=== PATIENT | female | born 1945 | race African-American/Black ===

== ENCOUNTER 2017-05-08 13:58 | Emergency (ER) | payer MEDICARE, MEDICAID ==
[~2017-05-08] VITALS: Ht 165.1 cm; Wt 109.0 kg
[~2017-05-08 13:58] MED LIST: ASPI-1158 PO; CELE100C PO; CLON0.2T PO; COMBIV IH; CYAN500T18 PO; DULO60CA44 PO; FURO-151 PO; HYDR-1717 PO; HYDR-4134 PO; LEVPEN SQ; LIRA0.6P SQ; LISI40TA4 PO; LOSA50TA3 PO; METH500T PO; NYST15PO TP; OMEP20CA10 PO; PIOG15TA6 PO; SIMV40TA5 PO; TIMO15DR12 OP; [UNRECOGNIZED DRUG - OTHER]
[2017-05-08 15:43] LABS: BASOPHILS % 1.4 % (0.0-2.0); EOSINOPHILS % 1.9 % (0.0-5.0); HEMATOCRIT. 34.2 % (36.0-48.0); HEMOGLOBIN. 11.6 g/dL (12.0-16.0); LYMPHOCYTES % 22.5 % (20.0-50.0); MEAN CORPUSCULAR HEMOGLOBIN 31.1 pg (28.0-32.0); MEAN CORPUSCULAR VOLUME 91.3 fL (81.0-99.0); MONOCYTES % 4.6 % (2.0-8.0); NEUTROPHILS % 69.6 % (40.0-76.0); PLATELET 202 x1000/uL (130-400); RED BLOOD CELL COUNT 3.75 mill/uL (4.2-5.4)
[2017-05-08 15:53] LABS: CARBON DIOXIDE 27 mEq/L (21-32); CHLORIDE 106 mEq/L (98-107)
[2017-05-08] MEDS ORDERED: SULFAMETHOXAZOLE/TRIMETHOPRIM 800/160MG TABLET PO ONE (18:30)
[2017-05-08] MEDS ORDERED: CEPHALEXIN 500MG CAPSULE PO ONE (18:30)
[2017-05-08 18:51] VITALS: BP 188/98
== END 2017-05-08 18:54 | disposition home or self-care (01) ==
LOC: ER 17:02
DX: L03.115 Cellulitis of right lower limb (principal); Z88.0 Allergy status to penicillin; Z88.5 Allergy status to narcotic agent; Z79.82 Long term (current) use of aspirin
CPT/HCPCS: 36415; 80053; 85025; 99284

== ENCOUNTER 2019-03-28 15:02 | Inpatient (IN) | payer MEDICARE, MEDICAID ==
[~2019-03-28] VITALS: Ht 162.6 cm; Wt 113.9 kg
[~2019-03-28 15:02] MED LIST changes: +ATOR40TA70 PO; -OMEP20CA10 PO; +OMEP20CA5 PO; -SIMV40TA5 PO; +VIT D; -[UNRECOGNIZED DRUG - OTHER]
[2019-03-28] MEDS ORDERED: NITROGLYCERIN OINT 1GM/INCH UDPKT TD ONE (16:00)
[2019-03-28] MEDS ORDERED: FUROSEMIDE 40MG/4ML VIAL IV ONE (16:00)
[2019-03-28] MEDS ORDERED: CLONIDINE 0.2MG TABLET PO ONE (16:00)
[2019-03-28 16:19] LABS: BASOPHILS % 0.8 % (0.0-2.0); EOSINOPHILS % 1.7 % (0.0-5.0); HEMATOCRIT. 30.6 % (36.0-48.0); HEMOGLOBIN. 10.3 g/dL (12.0-16.0); LYMPHOCYTES % 17.3 % (20.0-50.0); MEAN CORPUSCULAR HEMOGLOBIN 31.5 pg (28.0-32.0); MEAN CORPUSCULAR VOLUME 93.2 fL (81.0-99.0); MEAN PLATELET VOLUME 9.7 fl (7.4-10.4); MONOCYTES % 3.7 % (2.0-8.0); NEUTROPHILS % 76.5 % (40.0-76.0); PLATELET 130 x1000/uL (130-400); RED BLOOD CELL COUNT 3.28 mill/uL (4.2-5.4); RED CELL DISTRIBUTION WIDTH 14.2 % (11.6-14.6)
[2019-03-28 16:21] LABS: CHLORIDE 109 mEq/L (98-107)
[2019-03-28 16:24] LABS: PARTIAL THROMBOPLASTIN TIME 25.2 sec (23.4-31.0)
[2019-03-28] MEDS ORDERED: INSULIN REGULAR (HUMULIN R) UD 100 UNITS/ML SYR SUBCUT ONE (17:00)
[2019-03-28] MEDS ORDERED: INSULIN REGULAR (HUMULIN R) 300UNITS/3ML SUBCUT NR (17:31)
[2019-03-28] MEDS ORDERED: ASPIRIN 325MG EC TABLET PO ONE (18:00)
[2019-03-28] MEDS ORDERED: HYDRALAZINE 20MG/ML VIAL IV ONE (18:00)
[2019-03-28] MEDS ORDERED: ACETAMINOPHEN 325MG TABLET PO PRN (18:15)
[2019-03-28] MEDS ORDERED: DOCUSATE SODIUM 100MG CAPSULE PO PRN (18:15)
[2019-03-28] MEDS ORDERED: CLONIDINE 0.1MG TABLET PO PRN (18:15)
[2019-03-28] MEDS ORDERED: METHOCARBAMOL 500MG TABLET PO PRN (18:15)
[2019-03-28] MEDS ORDERED: ONDANSETRON HCL 4MG/2ML INJ IV PRN (18:15)
[2019-03-28 18:38] LABS: CLARITY URINE CLEAR (CLEAR); COLOR URINE YELLOW (YELLOW); KETONES URINE NEGATIVE (NEGATIVE); LEUKOCYTE ESTERASE URINE NEGATIVE (NEGATIVE); NITRITE URINE NEGATIVE (NEGATIVE); OCCULT BLOOD URINE 1+ (NEGATIVE); PROTEIN URINE 2+ (NEGATIVE); SPECIFIC GRAVITY URINE 1.013 (1.005-1.030)
[2019-03-28] MEDS ORDERED: ACETAMINOPHEN 325MG TABLET PO ONE (18:45)
[2019-03-28] MEDS ORDERED: LEVOFLOXACIN 500MG PREMIX 100 ML IV SCH (19:00)
[2019-03-28 19:30] LABS: *AMPHETAMINES SCREEN URINE NEGATIVE (NEGATIVE)
[2019-03-28 19:31] LABS: *BARBITURATES SCREEN URINE NEGATIVE (NEGATIVE); *BENZODIAZEPINES SCREEN URINE NEGATIVE (NEGATIVE); *COCAINE SCREEN URINE NEGATIVE (NEGATIVE)
[2019-03-28 19:32] LABS: CANNABINOID URINE SCREEN NEGATIVE (NEGATIVE); METHADONE URINE SCREEN NEGATIVE (NEGATIVE); OPIATES URINE SCREEN NEGATIVE (NEGATIVE); PHENCYCLIDINE URINE SCREEN NEGATIVE (NEGATIVE)
[2019-03-28] MEDS ORDERED: DEXTROSE 50% WATER 50ML SYRINGE IV PRN (21:00)
[2019-03-28] MEDS ORDERED: INSULIN GLARGINE UD 100 UNITS/ML SYR SUBCUT SCH (22:00)
[2019-03-28 22:30] VITALS: BP 170/95
[2019-03-28] MEDS: BLOOD SUGAR DIAGNOSTIC STRIP TEST SCH (23:00)
[2019-03-29] VITALS (7 sets, daily range): BP systolic 118–187; BP diastolic 61–95
[2019-03-29] MEDS ORDERED: INSULIN GLARGINE UD 100 UNITS/ML SYR SUBCUT SCH
[2019-03-29] MEDS: ATORVASTATIN CALCIUM 20MG TABLET PO SCH ×2 (00:01→22:00)
[2019-03-29] MEDS: PANTOPRAZOLE 40MG DR TABLET PO SCH ×3 (00:02→22:03)
[2019-03-29] MEDS: GABAPENTIN 100MG CAPSULE PO SCH ×4 (00:03→22:00)
[2019-03-29] MEDS: TRAMADOL 50MG TABLET PO PRN ×3 (00:04→23:31)
[2019-03-29] MEDS: HYDRALAZINE HCL 25MG TABLET PO SCH ×4 (00:04→22:01)
[2019-03-29] MEDS: CLONIDINE 0.2MG TABLET PO SCH ×4 (00:05→22:01)
[2019-03-29] MEDS: INSULIN LISPRO 100 UNITS/ML SUBCUT SCH ×4 (00:08→17:56)
[2019-03-29] MEDS: LOSARTAN POTASSIUM 50 MG TABLET PO SCH ×2 (00:11→09:15)
[2019-03-29] MEDS ORDERED: NEOM28.3 TP (04:22)
[2019-03-29] MEDS ORDERED: KETO5DRO80 EACHEYE (04:22)
[2019-03-29] MEDS ORDERED: KETO5DRO37 OP (04:22)
[2019-03-29] MEDS ORDERED: BRIN8DRO EACHEYE (04:22)
[2019-03-29] MEDS ORDERED: PRED12O BOTHEYE (04:22)
[2019-03-29] MEDS ORDERED: PRED12O EACHEYE (04:22)
[2019-03-29 05:56] LABS: BASOPHILS % 0.4 % (0.0-2.0); HEMOGLOBIN. 10.2 g/dL (12.0-16.0); LYMPHOCYTES % 23.4 % (20.0-50.0); MEAN CORPUSCULAR HEMOGLOBIN 31.4 pg (28.0-32.0); MEAN CORPUSCULAR VOLUME 92.3 fL (81.0-99.0); MEAN PLATELET VOLUME 10.8 fl (7.4-10.4); MONOCYTES % 5.6 % (2.0-8.0); NEUTROPHILS % 68.6 % (40.0-76.0); PLATELET 129 x1000/uL (130-400); RED BLOOD CELL COUNT 3.25 mill/uL (4.2-5.4); RED CELL DISTRIBUTION WIDTH 13.9 % (11.6-14.6)
[2019-03-29 05:58] LABS: CHLORIDE 109 mEq/L (98-107)
[2019-03-29 06:07] LABS: LDL CHOLESTEROL 84 mg/dL (5-100)
[2019-03-29 06:08] LABS: HDL CHOLESTEROL 66 mg/dL (40-59)
[2019-03-29] MEDS: BLOOD SUGAR DIAGNOSTIC STRIP TEST SCH ×4 (07:11→21:00)
[2019-03-29] MEDS ORDERED: PIOGLITAZONE 15MG TABLET PO SCH (09:00)
[2019-03-29] MEDS: FUROSEMIDE 40MG/4ML VIAL IVP SCH (09:15)
[2019-03-29] MEDS: DULOXETINE HCL 60MG DR CAPSULE PO SCH (09:16)
[2019-03-29] MEDS: IPRATROPIUM/ALBUTEROL 0.5-3(2.5)MG/3ML NEB INH SCH ×3 (09:19→21:16)
[2019-03-29] MEDS ORDERED: INSULIN LISPRO 100 UNITS/ML SUBCUT SCH (17:20)
[2019-03-29] MEDS: LINAGLIPTIN 5MG TABLET PO SCH (17:53)
[2019-03-29] MEDS: INSULIN LISPRO (LOW DOSE) 100 UNITS/ML SUBCUT SCH (17:57)
[2019-03-29] MEDS ORDERED: PNEUMOCOCCAL 23-VAL P-SAC VAC 0.5 ML IM ONE (19:45)
[2019-03-29] MEDS ORDERED: LEVOFLOXACIN 500MG PREMIX 100 ML IV SCH (20:00)
[2019-03-29] MEDS: INSULIN GLARGINE UD 100 UNITS/ML SYR SUBCUT SCH (21:54)
[2019-03-29] MEDS: ENOXAPARIN 30MG/0.3ML SYR SUBCUT SCH (22:08)
[2019-03-29] MEDS: LEVOFLOXACIN 250MG PREMIX 50 ML IV SCH (23:30)
[2019-03-30] VITALS: BP 144/71
[2019-03-30] MEDS: IPRATROPIUM/ALBUTEROL 0.5-3(2.5)MG/3ML NEB INH SCH ×4 (01:57→21:40)
[2019-03-30 04:00] VITALS: BP 102/66
[2019-03-30] MEDS: GABAPENTIN 100MG CAPSULE PO SCH (05:48)
[2019-03-30] MEDS: HYDRALAZINE HCL 25MG TABLET PO SCH ×3 (05:50→21:18)
[2019-03-30] MEDS: CLONIDINE 0.2MG TABLET PO SCH ×3 (05:51→21:18)
[2019-03-30] MEDS: PANTOPRAZOLE 40MG DR TABLET PO SCH ×2 (06:32→21:18)
[2019-03-30] MEDS: TRAMADOL 50MG TABLET PO PRN ×2 (06:51→23:07)
[2019-03-30 06:52] LABS: BASOPHILS % 0.6 % (0.0-2.0); EOSINOPHILS % 1.2 % (0.0-5.0); HEMATOCRIT. 28.3 % (36.0-48.0); HEMOGLOBIN. 9.6 g/dL (12.0-16.0); LYMPHOCYTES % 21.2 % (20.0-50.0); MEAN CORPUSCULAR HEMOGLOBIN 31.3 pg (28.0-32.0); MEAN CORPUSCULAR VOLUME 92.6 fL (81.0-99.0); MEAN PLATELET VOLUME 9.8 fl (7.4-10.4); MONOCYTES % 4.8 % (2.0-8.0); NEUTROPHILS % 72.2 % (40.0-76.0); PLATELET 120 x1000/uL (130-400); RED BLOOD CELL COUNT 3.06 mill/uL (4.2-5.4); RED CELL DISTRIBUTION WIDTH 14.3 % (11.6-14.6)
[2019-03-30 06:59] LABS: CHLORIDE 105 mEq/L (98-107)
[2019-03-30 07:11] LABS: T4 FREE 0.98 ng/dL (0.76-1.46)
[2019-03-30] MEDS: BLOOD SUGAR DIAGNOSTIC STRIP TEST SCH ×4 (07:46→21:23)
[2019-03-30] MEDS: FUROSEMIDE 40MG/4ML VIAL IVP SCH (08:26)
[2019-03-30] MEDS: DULOXETINE HCL 60MG DR CAPSULE PO SCH (08:26)
[2019-03-30] MEDS: LINAGLIPTIN 5MG TABLET PO SCH (08:26)
[2019-03-30] MEDS: LOSARTAN POTASSIUM 50 MG TABLET PO SCH (08:27)
[2019-03-30] MEDS: ENOXAPARIN 30MG/0.3ML SYR SUBCUT SCH ×2 (08:27→21:22)
[2019-03-30] MEDS: ASPIRIN 81MG TABLET PO SCH (08:27)
[2019-03-30] MEDS: INSULIN LISPRO 100 UNITS/ML SUBCUT SCH ×3 (08:30→18:09)
[2019-03-30] MEDS: INSULIN LISPRO (LOW DOSE) 100 UNITS/ML SUBCUT SCH ×3 (08:31→17:50)
[2019-03-30] MEDS: INSULIN GLARGINE UD 100 UNITS/ML SYR SUBCUT SCH (10:40)
[2019-03-30 12:29] VITALS: BP 150/73
[2019-03-30 15:50] VITALS: BP 162/81
[2019-03-30 20:00] VITALS: BP 150/81
[2019-03-30] MEDS: ATORVASTATIN CALCIUM 20MG TABLET PO SCH (21:18)
[2019-03-30] MEDS: LEVOFLOXACIN 250MG PREMIX 50 ML IV SCH (21:30)
[2019-03-31] VITALS: BP 135/70
[2019-03-31] MEDS: IPRATROPIUM/ALBUTEROL 0.5-3(2.5)MG/3ML NEB INH SCH ×3 (01:34→21:26)
[2019-03-31 04:00] VITALS: BP 132/68
[2019-03-31] MEDS: HYDRALAZINE HCL 25MG TABLET PO SCH ×3 (06:45→22:28)
[2019-03-31] MEDS: CLONIDINE 0.2MG TABLET PO SCH ×3 (06:45→22:29)
[2019-03-31] MEDS: BLOOD SUGAR DIAGNOSTIC STRIP TEST SCH ×4 (07:04→21:00)
[2019-03-31] MEDS: INSULIN LISPRO 100 UNITS/ML SUBCUT SCH ×6 (07:04→18:28)
[2019-03-31 07:37] LABS: BASOPHILS % 0.6 % (0.0-2.0); EOSINOPHILS % 2.5 % (0.0-5.0); HEMOGLOBIN. 10.5 g/dL (12.0-16.0); LYMPHOCYTES % 34.2 % (20.0-50.0); MEAN CORPUSCULAR HEMOGLOBIN 31.3 pg (28.0-32.0); MEAN CORPUSCULAR VOLUME 92.1 fL (81.0-99.0); MEAN PLATELET VOLUME 10.5 fl (7.4-10.4); NEUTROPHILS % 57.7 % (40.0-76.0); PLATELET 131 x1000/uL (130-400); RED BLOOD CELL COUNT 3.37 mill/uL (4.2-5.4); RED CELL DISTRIBUTION WIDTH 14.4 % (11.6-14.6)
[2019-03-31 07:55] LABS: CHLORIDE 104 mEq/L (98-107)
[2019-03-31] MEDS: PANTOPRAZOLE 40MG DR TABLET PO SCH ×2 (08:05→22:29)
[2019-03-31] MEDS: LINAGLIPTIN 5MG TABLET PO SCH (09:46)
[2019-03-31] MEDS: LOSARTAN POTASSIUM 50 MG TABLET PO SCH (09:46)
[2019-03-31] MEDS: PRIMIDONE 50MG TABLET PO SCH ×2 (09:46→22:28)
[2019-03-31] MEDS: ASPIRIN 81MG TABLET PO SCH (09:46)
[2019-03-31] MEDS: ENOXAPARIN 30MG/0.3ML SYR SUBCUT SCH ×2 (09:48→22:29)
[2019-03-31] MEDS: INSULIN GLARGINE UD 100 UNITS/ML SYR SUBCUT SCH ×2 (10:00→22:31)
[2019-03-31] MEDS ORDERED: LEVOFLOXACIN 250MG TABLET PO SCH (11:00)
[2019-03-31 12:00] VITALS: BP 168/86
[2019-03-31] MEDS: GABAPENTIN 100MG CAPSULE PO SCH ×2 (13:19→22:28)
[2019-03-31] MEDS ORDERED: CLON0.3T PO (13:53)
[2019-03-31 15:38] VITALS: BP 155/76
[2019-03-31] MEDS: TRAMADOL 50MG TABLET PO PRN ×2 (15:56→22:42)
[2019-03-31 16:35] VITALS: BP 168/99
[2019-03-31 20:00] VITALS: BP 144/66
[2019-03-31 20:36] LABS: T4 FREE 0.95 ng/dL (0.76-1.46)
[2019-03-31] MEDS: ATORVASTATIN CALCIUM 20MG TABLET PO SCH (22:28)
[2019-04-01] VITALS: BP 174/81
[2019-04-01] MEDS: IPRATROPIUM/ALBUTEROL 0.5-3(2.5)MG/3ML NEB INH SCH (02:26)
[2019-04-05 08:07] LABS: DOPAMINE PLASMA <30 pg/mL (0-48); EPINEPHRINE PLASMA <15 pg/mL (0-62); NOREPINEPHRINE PLASMA 326 pg/mL (0-874)
== END 2019-04-01 03:50 | disposition home or self-care (01) | DRG 291 ==
LOC: ER 15:02 → 6WST 18:03 → ENRESERV 20:04 → 6WST 03-29 23:00
PROVIDERS: ADMIT Internal Medicine Nephrology; ATTEND Internal Medicine Nephrology
DX: I13.0 Hypertensive heart and chronic kidney disease with heart failure and stage 1 through stage 4 chronic kidney disease, or unspecified chronic kidney disease (principal); I50.23 Acute on chronic systolic (congestive) heart failure; N39.0 Urinary tract infection, site not specified; Z68.41 Body mass index [BMI] 40.0-44.9, adult; N17.9 Acute kidney failure, unspecified; D64.9 Anemia, unspecified; D69.6 Thrombocytopenia, unspecified; E11.65 Type 2 diabetes mellitus with hyperglycemia; E66.01 Morbid (severe) obesity due to excess calories; E78.5 Hyperlipidemia, unspecified; I87.2 Venous insufficiency (chronic) (peripheral); J44.9 Chronic obstructive pulmonary disease, unspecified; I89.0 Lymphedema, not elsewhere classified; M06.9 Rheumatoid arthritis, unspecified; M48.061 Spinal stenosis, lumbar region without neurogenic claudication; N18.2 Chronic kidney disease, stage 2 (mild); K44.9 Diaphragmatic hernia without obstruction or gangrene; R26.9 Unspecified abnormalities of gait and mobility; E11.22 Type 2 diabetes mellitus with diabetic chronic kidney disease; E11.42 Type 2 diabetes mellitus with diabetic polyneuropathy; E11.649 Type 2 diabetes mellitus with hypoglycemia without coma; Z79.4 Long term (current) use of insulin; Z79.82 Long term (current) use of aspirin; Z79.899 Other long term (current) drug therapy; Z83.3 Family history of diabetes mellitus; Z86.73 Personal history of transient ischemic attack (TIA), and cerebral infarction without residual deficits; Z98.42 Cataract extraction status, left eye; Z88.0 Allergy status to penicillin; Z88.5 Allergy status to narcotic agent; Z79.1 Long term (current) use of non-steroidal anti-inflammatories (NSAID)
CPT/HCPCS: 36415; 71045; 78582; 80048; 80061; 80305; 81003; 82306; 82310; 82390; 82533; 82962; 83036; 83735; 83835; 83880; 84439; 84443; 84481; 84484; 85379; 90732; 93005; 93306; 93970; 94640; 97162; 97166; 97530; 97535; 99285; A9558; J0360; J1650; J1815; J1940; J1956; J7620

== ENCOUNTER 2019-05-05 15:21 | Inpatient (IN) | payer MEDICARE, MEDICAID ==
[~2019-05-05] VITALS: Ht 167.6 cm; Wt 118.4 kg
[~2019-05-05 15:21] MED LIST changes: +BRIN8DRO EACHEYE; -CLON0.2T PO; +CLON0.3T PO; -CYAN500T18 PO; -HYDR-1717 PO; -HYDR-4134 PO; +KETO5DRO37 OP; -LOSA50TA3 PO; -METH500T PO; +NEOM28.3 TP; -NYST15PO TP; -PIOG15TA6 PO; +PRED12O BOTHEYE; -TIMO15DR12 OP; -VIT D
[2019-05-05 18:09] LABS: BASOPHILS % 0.9 % (0.0-2.0); EOSINOPHILS % 1.1 % (0.0-5.0); HEMATOCRIT. 31.3 % (36.0-48.0); HEMOGLOBIN. 10.3 g/dL (12.0-16.0); LYMPHOCYTES % 19.7 % (20.0-50.0); MEAN CORPUSCULAR HEMOGLOBIN 31.1 pg (28.0-32.0); MEAN CORPUSCULAR VOLUME 94.3 fL (81.0-99.0); MEAN PLATELET VOLUME 10.6 fl (7.4-10.4); MONOCYTES % 4.2 % (2.0-8.0); NEUTROPHILS % 74.1 % (40.0-76.0); PLATELET 181 x1000/uL (130-400); RED BLOOD CELL COUNT 3.32 mill/uL (4.2-5.4); RED CELL DISTRIBUTION WIDTH 14.5 % (11.6-14.6)
[2019-05-05 18:13] LABS: CHLORIDE 111 mEq/L (98-107)
[2019-05-05 21:00] VITALS: BP 183/97
[2019-05-05] MEDS ORDERED: ONDANSETRON HCL 4MG/2ML INJ IV PRN (21:30)
[2019-05-05] MEDS: CLONIDINE 0.1MG TABLET PO PRN (22:43)
[2019-05-05] MEDS ORDERED: KETOROLAC 15MG/ML VIAL IV PRN (22:45)
[2019-05-05] MEDS: CLONIDINE 0.3MG TABLET PO SCH (23:48)
[2019-05-06] VITALS: BP 171/94
[2019-05-06 04:00] VITALS: BP 148/84
[2019-05-06] MEDS: DULOXETINE HCL 60MG DR CAPSULE PO SCH ×2 (05:17→21:01)
[2019-05-06] MEDS: FUROSEMIDE 40MG TABLET PO SCH ×3 (05:17→18:24)
[2019-05-06] MEDS: CLONIDINE 0.3MG TABLET PO SCH ×3 (05:22→20:58)
[2019-05-06] MEDS: KETOROLAC 15MG/ML VIAL IV PRN ×2 (06:59→12:35)
[2019-05-06 07:37] LABS: BASOPHILS % 0.9 % (0.0-2.0); EOSINOPHILS % 2.3 % (0.0-5.0); HEMATOCRIT. 26.3 % (36.0-48.0); HEMOGLOBIN. 8.9 g/dL (12.0-16.0); LYMPHOCYTES % 30.9 % (20.0-50.0); MEAN CORPUSCULAR HEMOGLOBIN 31.9 pg (28.0-32.0); MEAN CORPUSCULAR VOLUME 94.1 fL (81.0-99.0); MEAN PLATELET VOLUME 10.5 fl (7.4-10.4); NEUTROPHILS % 59.9 % (40.0-76.0); PLATELET 143 x1000/uL (130-400); RED BLOOD CELL COUNT 2.79 mill/uL (4.2-5.4); RED CELL DISTRIBUTION WIDTH 13.8 % (11.6-14.6)
[2019-05-06] MEDS ORDERED: DEXTROSE 50% WATER 50ML SYRINGE IV PRN (07:45)
[2019-05-06 08:00] VITALS: BP 143/90
[2019-05-06] MEDS: INSULIN LISPRO 100 UNITS/ML SUBCUT SCH ×3 (09:10→18:28)
[2019-05-06] MEDS: DOCUSATE SODIUM 100MG CAPSULE PO PRN (09:13)
[2019-05-06] MEDS: CELECOXIB 100MG CAPSULE PO SCH (09:13)
[2019-05-06] MEDS: ASPIRIN 81MG EC TABLET PO SCH (09:13)
[2019-05-06] MEDS: ENOXAPARIN 40MG/0.4ML SYR SUBCUT SCH (09:13)
[2019-05-06] MEDS: KETOROLAC TROMETHAMINE 0.5% OPHTH 3ML BOTHEYE SCH ×2 (09:23→18:24)
[2019-05-06] MEDS: SODIUM CHLORIDE 0.45% 1,000 ML IV SCH (09:24)
[2019-05-06] MEDS: TRAMADOL 50MG TABLET PO PRN (09:28)
[2019-05-06 12:00] VITALS: BP 166/76
[2019-05-06] MEDS: BLOOD SUGAR DIAGNOSTIC STRIP TEST SCH ×2 (12:36→17:20)
[2019-05-06 14:37] LABS: FOLIC ACID (FOLATE) SERUM 3.6 ng/mL (>5.38)
[2019-05-06 16:21] LABS: PROTHROMBIN TIME 10.2 sec (9.6-11.0); TOTAL IRON BINDING CAPACITY 193 ug/dL (250-450)
[2019-05-06 16:22] LABS: T4 FREE 0.82 ng/dL (0.76-1.46)
[2019-05-06 20:13] VITALS: BP 134/76
[2019-05-06] MEDS: ATORVASTATIN CALCIUM 40MG TABLET PO SCH (20:55)
[2019-05-07] VITALS (8 sets, daily range): BP systolic 137–203; BP diastolic 69–108
[2019-05-07] MEDS: CLONIDINE 0.1MG TABLET PO PRN ×4 (03:50→21:13)
[2019-05-07] MEDS: CLONIDINE 0.3MG TABLET PO SCH ×3 (06:12→21:28)
[2019-05-07] MEDS: SODIUM CHLORIDE 0.45% 1,000 ML IV SCH (06:12)
[2019-05-07] MEDS: KETOROLAC 15MG/ML VIAL IV PRN ×2 (06:24→18:04)
[2019-05-07 07:11] LABS: BASOPHILS % 0.8 % (0.0-2.0); EOSINOPHILS % 2.5 % (0.0-5.0); HEMATOCRIT. 28.1 % (36.0-48.0); HEMOGLOBIN. 9.5 g/dL (12.0-16.0); LYMPHOCYTES % 31.4 % (20.0-50.0); MEAN CORPUSCULAR HEMOGLOBIN 31.6 pg (28.0-32.0); MEAN CORPUSCULAR VOLUME 93.8 fL (81.0-99.0); MEAN PLATELET VOLUME 10.7 fl (7.4-10.4); MONOCYTES % 5.6 % (2.0-8.0); NEUTROPHILS % 59.7 % (40.0-76.0); PLATELET 151 x1000/uL (130-400); RED BLOOD CELL COUNT 2.99 mill/uL (4.2-5.4); RED CELL DISTRIBUTION WIDTH 14.1 % (11.6-14.6)
[2019-05-07] MEDS: ASPIRIN 81MG EC TABLET PO SCH (08:33)
[2019-05-07] MEDS: ENOXAPARIN 40MG/0.4ML SYR SUBCUT SCH (08:33)
[2019-05-07] MEDS: KETOROLAC TROMETHAMINE 0.5% OPHTH 3ML BOTHEYE SCH ×2 (08:33→18:36)
[2019-05-07] MEDS: FUROSEMIDE 40MG TABLET PO SCH ×2 (08:33→18:06)
[2019-05-07] MEDS: INSULIN LISPRO 100 UNITS/ML SUBCUT SCH ×4 (08:39→21:30)
[2019-05-07] MEDS ORDERED: AMLODIPINE 5MG TABLET PO SCH (11:15)
[2019-05-07] MEDS: BLOOD SUGAR DIAGNOSTIC STRIP TEST SCH ×4 (12:31→21:20)
[2019-05-07] MEDS: TRAMADOL 50MG TABLET PO PRN (19:02)
[2019-05-07] MEDS: AMLODIPINE 5MG TABLET PO SCH (21:13)
[2019-05-07] MEDS: DULOXETINE HCL 60MG DR CAPSULE PO SCH (21:28)
[2019-05-07] MEDS: ATORVASTATIN CALCIUM 40MG TABLET PO SCH (21:31)
[2019-05-07] MEDS: INSULIN GLARGINE UD 100 UNITS/ML SYR SUBCUT SCH (21:36)
[2019-05-08] VITALS (7 sets, daily range): BP systolic 153–191; BP diastolic 80–101
[2019-05-08] MEDS: SODIUM CHLORIDE 0.45% 1,000 ML IV SCH (01:45)
[2019-05-08] MEDS: TRAMADOL 50MG TABLET PO PRN ×3 (01:53→18:33)
[2019-05-08] MEDS: CLONIDINE 0.3MG TABLET PO SCH ×3 (06:08→21:09)
[2019-05-08 06:54] LABS: BASOPHILS % 0.7 % (0.0-2.0); EOSINOPHILS % 2.4 % (0.0-5.0); HEMOGLOBIN. 10.1 g/dL (12.0-16.0); LYMPHOCYTES % 26.2 % (20.0-50.0); MEAN CORPUSCULAR HEMOGLOBIN 31.4 pg (28.0-32.0); MEAN CORPUSCULAR VOLUME 93.2 fL (81.0-99.0); MONOCYTES % 4.2 % (2.0-8.0); NEUTROPHILS % 66.5 % (40.0-76.0); PLATELET 162 x1000/uL (130-400); RED BLOOD CELL COUNT 3.22 mill/uL (4.2-5.4); RED CELL DISTRIBUTION WIDTH 13.9 % (11.6-14.6)
[2019-05-08] MEDS: BLOOD SUGAR DIAGNOSTIC STRIP TEST SCH ×4 (07:35→21:00)
[2019-05-08] MEDS: INSULIN LISPRO 100 UNITS/ML SUBCUT SCH ×4 (08:10→21:11)
[2019-05-08] MEDS: AMLODIPINE 5MG TABLET PO SCH ×2 (08:54→21:09)
[2019-05-08] MEDS: FUROSEMIDE 40MG TABLET PO SCH (08:54)
[2019-05-08] MEDS: ENOXAPARIN 40MG/0.4ML SYR SUBCUT SCH (08:54)
[2019-05-08] MEDS: KETOROLAC TROMETHAMINE 0.5% OPHTH 3ML BOTHEYE SCH ×2 (08:55→18:33)
[2019-05-08] MEDS: HYDRALAZINE HCL 50MG TABLET PO SCH ×3 (13:06→21:09)
[2019-05-08] MEDS: CELECOXIB 100MG CAPSULE PO SCH (13:06)
[2019-05-08] MEDS: DOCUSATE SODIUM 100MG CAPSULE PO PRN (14:48)
[2019-05-08] MEDS: KETOROLAC 15MG/ML VIAL IV PRN (19:59)
[2019-05-08] MEDS: DULOXETINE HCL 60MG DR CAPSULE PO SCH (21:09)
[2019-05-08] MEDS: ATORVASTATIN CALCIUM 40MG TABLET PO SCH (21:09)
[2019-05-08] MEDS: INSULIN GLARGINE UD 100 UNITS/ML SYR SUBCUT SCH (21:11)
[2019-05-09] VITALS (9 sets, daily range): BP systolic 165–215; BP diastolic 85–98
[2019-05-09] MEDS: SODIUM CHLORIDE 0.45% 1,000 ML IV SCH ×2 (03:23→18:58)
[2019-05-09] MEDS: TRAMADOL 50MG TABLET PO PRN ×3 (04:58→15:11)
[2019-05-09] MEDS: HYDRALAZINE HCL 50MG TABLET PO SCH (05:01)
[2019-05-09] MEDS: CLONIDINE 0.3MG TABLET PO SCH ×3 (05:01→21:57)
[2019-05-09] MEDS: BLOOD SUGAR DIAGNOSTIC STRIP TEST SCH ×4 (06:15→21:00)
[2019-05-09 07:13] LABS: BASOPHILS % 0.4 % (0.0-2.0); HEMATOCRIT. 32.6 % (36.0-48.0); HEMOGLOBIN. 10.9 g/dL (12.0-16.0); LYMPHOCYTES % 17.7 % (20.0-50.0); MEAN CORPUSCULAR HEMOGLOBIN 31.3 pg (28.0-32.0); MEAN CORPUSCULAR VOLUME 93.5 fL (81.0-99.0); MEAN PLATELET VOLUME 10.5 fl (7.4-10.4); MONOCYTES % 3.6 % (2.0-8.0); NEUTROPHILS % 77.3 % (40.0-76.0); PLATELET 162 x1000/uL (130-400); RED BLOOD CELL COUNT 3.48 mill/uL (4.2-5.4); RED CELL DISTRIBUTION WIDTH 13.9 % (11.6-14.6)
[2019-05-09] MEDS: KETOROLAC TROMETHAMINE 0.5% OPHTH 3ML BOTHEYE SCH ×2 (09:11→18:57)
[2019-05-09] MEDS: ENOXAPARIN 40MG/0.4ML SYR SUBCUT SCH (09:12)
[2019-05-09] MEDS: AMLODIPINE 5MG TABLET PO SCH ×2 (09:12→20:21)
[2019-05-09] MEDS: CLONIDINE 0.1MG TABLET PO PRN ×3 (09:36→20:21)
[2019-05-09] MEDS: INSULIN LISPRO 100 UNITS/ML SUBCUT SCH ×3 (09:44→18:10)
[2019-05-09] MEDS: FUROSEMIDE 40MG TABLET PO SCH (09:47)
[2019-05-09] MEDS ORDERED: LOSARTAN POTASSIUM 50 MG TABLET PO SCH (11:00)
[2019-05-09] MEDS: KETOROLAC 15MG/ML VIAL IV PRN ×2 (11:16→23:44)
[2019-05-09] MEDS: HYDRALAZINE HCL 25MG TABLET PO SCH ×2 (14:18→21:57)
[2019-05-09] MEDS: ATORVASTATIN CALCIUM 40MG TABLET PO SCH (20:21)
[2019-05-09] MEDS: DULOXETINE HCL 60MG DR CAPSULE PO SCH (20:21)
[2019-05-09] MEDS ORDERED: HYDRALAZINE 20MG/ML VIAL IV NR (23:24)
[2019-05-10] VITALS (73 sets, daily range): BP systolic 96–226; BP diastolic 49–129
[2019-05-10] MEDS: INSULIN LISPRO 100 UNITS/ML SUBCUT SCH ×5 (00:04→22:21)
[2019-05-10] MEDS: INSULIN GLARGINE UD 100 UNITS/ML SYR SUBCUT SCH ×2 (00:05→22:22)
[2019-05-10] MEDS: ACETAMINOPHEN 325MG TABLET PO PRN ×2 (02:50→11:06)
[2019-05-10] MEDS: TRAMADOL 50MG TABLET PO PRN ×2 (03:19→20:15)
[2019-05-10] MEDS ORDERED: LABETALOL HCL 20MG/4ML CARPUJECT IV ONE (03:45)
[2019-05-10] MEDS ORDERED: LABETALOL HCL 20MG/4ML CARPUJECT IV NR (04:00)
[2019-05-10] MEDS ORDERED: NICARDIPINE 50 MG in SODIUM CHLORIDE 0.9% 230 ML IV PRN (05:00)
[2019-05-10] MEDS: CLONIDINE 0.3MG TABLET PO SCH ×3 (06:02→22:20)
[2019-05-10] MEDS: HYDRALAZINE HCL 25MG TABLET PO SCH ×3 (06:02→22:20)
[2019-05-10] MEDS: KETOROLAC 15MG/ML VIAL IV PRN ×2 (06:21→22:33)
[2019-05-10] MEDS ORDERED: IOHEXOL-350 100 ML BOTTLE ONE (06:39)
[2019-05-10] MEDS: BLOOD SUGAR DIAGNOSTIC STRIP TEST SCH ×4 (06:56→21:00)
[2019-05-10] MEDS: SODIUM CHLORIDE 0.45% 1,000 ML IV SCH (07:55)
[2019-05-10 08:44] LABS: HEMATOCRIT. 31.3 % (36.0-48.0); HEMOGLOBIN. 10.5 g/dL (12.0-16.0); MEAN CORPUSCULAR HEMOGLOBIN 31.4 pg (28.0-32.0); MEAN CORPUSCULAR VOLUME 93.4 fL (81.0-99.0); RED BLOOD CELL COUNT 3.35 mill/uL (4.2-5.4); RED CELL DISTRIBUTION WIDTH 13.9 % (11.6-14.6)
[2019-05-10] MEDS: KETOROLAC TROMETHAMINE 0.5% OPHTH 3ML BOTHEYE SCH ×2 (08:51→18:25)
[2019-05-10] MEDS: CELECOXIB 100MG CAPSULE PO SCH (08:52)
[2019-05-10] MEDS: FUROSEMIDE 40MG TABLET PO SCH (08:52)
[2019-05-10] MEDS: LOSARTAN POTASSIUM 100 MG TABLET PO SCH (08:52)
[2019-05-10] MEDS: DOCUSATE SODIUM 100MG CAPSULE PO PRN (08:52)
[2019-05-10] MEDS: CLONIDINE 0.1MG TABLET PO PRN (08:52)
[2019-05-10] MEDS: AMLODIPINE 5MG TABLET PO SCH ×2 (08:53→20:14)
[2019-05-10] MEDS: ENOXAPARIN 40MG/0.4ML SYR SUBCUT SCH (08:56)
[2019-05-10] MEDS: DOXAZOSIN MESYLATE 2MG TABLET PO SCH ×2 (08:56→20:16)
[2019-05-10] MEDS ORDERED: LOSARTAN POTASSIUM 50 MG TABLET PO SCH (09:00)
[2019-05-10 09:50] LABS: PLATELET 172 x1000/uL (130-400)
[2019-05-10 09:53] LABS: PLATELET ESTIMATE NORMAL
[2019-05-10] MEDS ORDERED: NICARDIPINE 50 MG in SODIUM CHLORIDE 0.9% 230 ML IV SCH (12:00)
[2019-05-10] MEDS: ENOXAPARIN 30MG/0.3ML SYR SUBCUT SCH (20:14)
[2019-05-10] MEDS: DULOXETINE HCL 60MG DR CAPSULE PO SCH (20:15)
[2019-05-10] MEDS: ATORVASTATIN CALCIUM 40MG TABLET PO SCH (20:15)
[2019-05-11] VITALS (20 sets, daily range): BP systolic 119–170; BP diastolic 50–97
[2019-05-11] MEDS: TRAMADOL 50MG TABLET PO PRN ×2 (03:17→18:24)
[2019-05-11 05:24] LABS: BASOPHILS % 0.6 % (0.0-2.0); EOSINOPHILS % 1.2 % (0.0-5.0); HEMATOCRIT. 26.2 % (36.0-48.0); HEMOGLOBIN. 8.9 g/dL (12.0-16.0); LYMPHOCYTES % 25.4 % (20.0-50.0); MEAN CORPUSCULAR HEMOGLOBIN 31.5 pg (28.0-32.0); MEAN CORPUSCULAR VOLUME 93.4 fL (81.0-99.0); MEAN PLATELET VOLUME 10.1 fl (7.4-10.4); MONOCYTES % 5.2 % (2.0-8.0); NEUTROPHILS % 67.6 % (40.0-76.0); PLATELET 141 x1000/uL (130-400); RED BLOOD CELL COUNT 2.81 mill/uL (4.2-5.4)
[2019-05-11] MEDS: HYDRALAZINE HCL 25MG TABLET PO SCH (05:48)
[2019-05-11] MEDS: CLONIDINE 0.3MG TABLET PO SCH ×3 (05:48→22:07)
[2019-05-11 05:51] LABS: PHOSPHORUS 3.8 mg/dL (2.5-4.9)
[2019-05-11] MEDS: BLOOD SUGAR DIAGNOSTIC STRIP TEST SCH ×4 (06:02→20:57)
[2019-05-11] MEDS: SODIUM CHLORIDE 0.45% 1,000 ML IV SCH (06:02)
[2019-05-11] MEDS: INSULIN LISPRO 100 UNITS/ML SUBCUT SCH ×4 (06:37→20:57)
[2019-05-11] MEDS: ENOXAPARIN 30MG/0.3ML SYR SUBCUT SCH ×2 (08:12→20:34)
[2019-05-11] MEDS: LOSARTAN POTASSIUM 100 MG TABLET PO SCH (08:12)
[2019-05-11] MEDS: KETOROLAC TROMETHAMINE 0.5% OPHTH 3ML BOTHEYE SCH ×2 (08:13→17:16)
[2019-05-11] MEDS: AMLODIPINE 5MG TABLET PO SCH ×2 (08:13→20:33)
[2019-05-11] MEDS: DOXAZOSIN MESYLATE 2MG TABLET PO SCH ×2 (08:13→20:33)
[2019-05-11] MEDS: ACETAMINOPHEN 325MG TABLET PO PRN (10:48)
[2019-05-11] MEDS: CLONIDINE 0.1MG TABLET PO PRN (10:48)
[2019-05-11 12:11] LABS: HEMATOCRIT 26.9 % (36.0-48.0); HEMOGLOBIN 9.1 g/dL (12.0-16.0)
[2019-05-11] MEDS: KETOROLAC 15MG/ML VIAL IV PRN ×2 (13:06→21:03)
[2019-05-11] MEDS: HYDRALAZINE HCL 100MG TABLET PO SCH ×2 (13:14→22:07)
[2019-05-11] MEDS: ATORVASTATIN CALCIUM 40MG TABLET PO SCH (20:33)
[2019-05-11] MEDS: DULOXETINE HCL 60MG DR CAPSULE PO SCH (20:33)
[2019-05-11] MEDS: INSULIN GLARGINE UD 100 UNITS/ML SYR SUBCUT SCH (22:07)
[2019-05-12] VITALS (12 sets, daily range): BP systolic 134–172; BP diastolic 65–89
[2019-05-12] MEDS: TRAMADOL 50MG TABLET PO PRN ×3 (01:20→14:34)
[2019-05-12] MEDS: SODIUM CHLORIDE 0.45% 1,000 ML IV SCH (01:24)
[2019-05-12] MEDS: KETOROLAC 15MG/ML VIAL IV PRN ×2 (05:08→12:57)
[2019-05-12] MEDS: CLONIDINE 0.3MG TABLET PO SCH ×2 (06:07→14:35)
[2019-05-12] MEDS: HYDRALAZINE HCL 100MG TABLET PO SCH ×2 (06:08→14:35)
[2019-05-12 06:56] LABS: PHOSPHORUS 3.5 mg/dL (2.5-4.9)
[2019-05-12] MEDS: BLOOD SUGAR DIAGNOSTIC STRIP TEST SCH ×3 (07:54→17:47)
[2019-05-12] MEDS: LOSARTAN POTASSIUM 100 MG TABLET PO SCH (08:28)
[2019-05-12] MEDS: AMLODIPINE 5MG TABLET PO SCH (08:28)
[2019-05-12] MEDS: CELECOXIB 100MG CAPSULE PO SCH (08:29)
[2019-05-12] MEDS: DOXAZOSIN MESYLATE 2MG TABLET PO SCH (08:29)
[2019-05-12] MEDS: INSULIN LISPRO 100 UNITS/ML SUBCUT SCH ×3 (08:30→17:47)
[2019-05-12] MEDS: ENOXAPARIN 30MG/0.3ML SYR SUBCUT SCH (08:33)
[2019-05-12] MEDS: KETOROLAC TROMETHAMINE 0.5% OPHTH 3ML BOTHEYE SCH ×2 (09:00→17:00)
[2019-05-12 15:31] LABS: BASOPHILS % 0.4 % (0.0-2.0); EOSINOPHILS % 1.6 % (0.0-5.0); HEMATOCRIT. 26.3 % (36.0-48.0); HEMOGLOBIN. 8.9 g/dL (12.0-16.0); LYMPHOCYTES % 22.8 % (20.0-50.0); MEAN CORPUSCULAR HEMOGLOBIN 31.7 pg (28.0-32.0); MEAN CORPUSCULAR VOLUME 93.8 fL (81.0-99.0); MEAN PLATELET VOLUME 10.3 fl (7.4-10.4); MONOCYTES % 5.7 % (2.0-8.0); NEUTROPHILS % 69.5 % (40.0-76.0); PLATELET 141 x1000/uL (130-400); RED CELL DISTRIBUTION WIDTH 14.2 % (11.6-14.6)
[2019-05-12] MEDS ORDERED: GABAPENTIN 100MG CAPSULE PO SCH (16:45)
[2019-05-12] MEDS ORDERED: DOXAZOSIN MESYLATE 2MG TABLET PO SCH (21:00)
== END 2019-05-12 19:00 | DRG 682 ==
LOC: ER 15:21 → 6EST 18:44 → ENRESERV 20:03 → 7WST 05-07 17:22 → MICUNO 05-10 05:35 → 5EST 05-11 10:25
PROVIDERS: ADMIT Internal Medicine Nephrology; ATTEND Internal Medicine Nephrology
DX: N17.9 Acute kidney failure, unspecified (principal); G93.41 Metabolic encephalopathy; E44.0 Moderate protein-calorie malnutrition; J98.11 Atelectasis; Z68.41 Body mass index [BMI] 40.0-44.9, adult; M48.02 Spinal stenosis, cervical region; M48.061 Spinal stenosis, lumbar region without neurogenic claudication; M47.816 Spondylosis without myelopathy or radiculopathy, lumbar region; E66.01 Morbid (severe) obesity due to excess calories; N18.9 Chronic kidney disease, unspecified; E11.22 Type 2 diabetes mellitus with diabetic chronic kidney disease; E11.42 Type 2 diabetes mellitus with diabetic polyneuropathy; D64.9 Anemia, unspecified; E11.39 Type 2 diabetes mellitus with other diabetic ophthalmic complication; E78.5 Hyperlipidemia, unspecified; I12.9 Hypertensive chronic kidney disease with stage 1 through stage 4 chronic kidney disease, or unspecified chronic kidney disease; R26.2 Difficulty in walking, not elsewhere classified; M79.606 Pain in leg, unspecified; E78.00 Pure hypercholesterolemia, unspecified; G89.29 Other chronic pain; H54.3 Unqualified visual loss, both eyes; K44.9 Diaphragmatic hernia without obstruction or gangrene; F32.9 Major depressive disorder, single episode, unspecified; M43.16 Spondylolisthesis, lumbar region; I89.0 Lymphedema, not elsewhere classified; M50.90 Cervical disc disorder, unspecified, unspecified cervical region; I95.9 Hypotension, unspecified; Z79.4 Long term (current) use of insulin; Z79.899 Other long term (current) drug therapy; Z86.73 Personal history of transient ischemic attack (TIA), and cerebral infarction without residual deficits; Z88.0 Allergy status to penicillin; Z88.6 Allergy status to analgesic agent; Z79.82 Long term (current) use of aspirin
CPT/HCPCS: 36415; 70496; 70551; 71045; 72141; 72146; 72148; 80048; 82270; 82550; 82607; 82746; 82962; 83036; 83540; 83550; 83735; 83880; 84100; 84439; 84443; 84484; 85014; 85018; 85651; 93005; 93970; 96372; 97162; 97166; 99285; A6261; J0360; J1650; J1815; J1885; J3490; J7040; J7050; Q9967; A4315

== ENCOUNTER 2019-08-02 09:55 | Inpatient (IN) | payer MEDICARE, MEDICAID ==
[~2019-08-02] VITALS: Ht 165.1 cm; Wt 106.7 kg
[~2019-08-02 09:55] MED LIST changes: -BRIN8DRO EACHEYE; -COMBIV IH; -LEVPEN SQ; -LIRA0.6P SQ; -LISI40TA4 PO; -NEOM28.3 TP; -OMEP20CA5 PO; -PRED12O BOTHEYE
[2019-08-02 11:17] LABS: BASOPHILS % 1.3 % (0.0-2.0); EOSINOPHILS % 1.7 % (0.0-5.0); HEMATOCRIT. 29.3 % (36.0-48.0); LYMPHOCYTES % 29.1 % (20.0-50.0); MEAN CORPUSCULAR HEMOGLOBIN 31.8 pg (28.0-32.0); MEAN CORPUSCULAR VOLUME 93.4 fL (81.0-99.0); MONOCYTES % 5.1 % (2.0-8.0); NEUTROPHILS % 62.8 % (40.0-76.0); PLATELET 164 x1000/uL (130-400); RED BLOOD CELL COUNT 3.14 mill/uL (4.2-5.4); RED CELL DISTRIBUTION WIDTH 13.6 % (11.6-14.6)
[2019-08-02 11:20] LABS: CHLORIDE 105 mEq/L (98-107)
[2019-08-02] MEDS ORDERED: ONDANSETRON HCL 4MG/2ML INJ IV PRN (11:45)
[2019-08-02] MEDS ORDERED: DOCUSATE SODIUM 100MG CAPSULE PO PRN (11:45)
[2019-08-02] MEDS: ENOXAPARIN 40MG/0.4ML SYR SUBCUT SCH (12:00)
[2019-08-02] MEDS: LEVOFLOXACIN 500MG PREMIX 100 ML IV SCH ×2 (12:02→13:30)
[2019-08-02] MEDS ORDERED: MORPHINE SULFATE 4 MG/ML CPJ (NOT FOR IM USE) IV ONE (12:15)
[2019-08-02] MEDS: CLONIDINE 0.3MG TABLET PO SCH ×2 (14:00→22:07)
[2019-08-02] MEDS ORDERED: METOCLOPRAMIDE HCL 5MG TABLET PO NR (16:00)
[2019-08-02] MEDS ORDERED: AMLODIPINE 5MG TABLET PO NR (16:00)
[2019-08-02] MEDS ORDERED: NITROGLYCERIN OINT 1GM/INCH UDPKT TD NR (16:00)
[2019-08-02] MEDS ORDERED: ASPIRIN 81MG TABLET PO NR (16:00)
[2019-08-02] MEDS ORDERED: HYDRALAZINE 20MG/ML VIAL IV PRN (20:30)
[2019-08-02 21:00] VITALS: BP 140/70
[2019-08-02] MEDS ORDERED: DEXTROSE 50% WATER 50ML SYRINGE IV PRN (21:15)
[2019-08-02] MEDS ORDERED: INSULIN GLARGINE UD 100 UNITS/ML SYR SUBCUT SCH (22:00)
[2019-08-02] MEDS ORDERED: GABA-531 PO (22:06)
[2019-08-02] MEDS: ATORVASTATIN CALCIUM 20MG TABLET PO SCH (22:07)
[2019-08-02] MEDS: FUROSEMIDE 40MG TABLET PO SCH (22:07)
[2019-08-02] MEDS: KETOROLAC 15MG/ML VIAL IV PRN (22:08)
[2019-08-02] MEDS: AMLODIPINE 5MG TABLET PO SCH (22:08)
[2019-08-02] MEDS ORDERED: LACT10SO7 MT (23:00)
[2019-08-02] MEDS ORDERED: CLON0.1T PO (23:00)
[2019-08-02] MEDS ORDERED: INSU100C6 SQ (23:00)
[2019-08-02] MEDS ORDERED: DOXA4TAB2 PO (23:00)
[2019-08-02] MEDS ORDERED: LANTUSUD SUBCUT (23:00)
[2019-08-02] MEDS ORDERED: BISA10SU62 RC (23:00)
[2019-08-02] MEDS ORDERED: IPRA3AMP31 IH (23:00)
[2019-08-02] MEDS ORDERED: AMLO10TA80 PO (23:00)
[2019-08-02] MEDS ORDERED: TRAM50TA94 PO (23:00)
[2019-08-02] MEDS ORDERED: SENN-178 PO (23:00)
[2019-08-02] MEDS ORDERED: MULT-1223 PO (23:00)
[2019-08-02] MEDS ORDERED: DOCU250C14 PO (23:00)
[2019-08-02] MEDS ORDERED: LOV40 SQ (23:00)
[2019-08-02] MEDS ORDERED: FOLI-43 PO (23:00)
[2019-08-02] MEDS ORDERED: LOSA100T32 PO (23:00)
[2019-08-02] MEDS ORDERED: TOPUD PO (23:00)
[2019-08-02] MEDS ORDERED: HYDR100T26 PO (23:00)
[2019-08-03] MEDS: METOCLOPRAMIDE HCL 5MG TABLET PO SCH ×4 (00:44→17:58)
[2019-08-03] MEDS: NITROGLYCERIN OINT 1GM/INCH UDPKT TD SCH ×4 (00:45→18:01)
[2019-08-03 00:50] VITALS: BP 177/90
[2019-08-03 02:47] LABS: CLARITY URINE CLOUDY (CLEAR); COLOR URINE YELLOW (YELLOW); KETONES URINE NEGATIVE (NEGATIVE); LEUKOCYTE ESTERASE URINE 1+ (NEGATIVE); NITRITE URINE NEGATIVE (NEGATIVE); OCCULT BLOOD URINE NEGATIVE (NEGATIVE); PROTEIN URINE 3+ (NEGATIVE); SPECIFIC GRAVITY URINE 1.017 (1.005-1.030); UROBILINOGEN URINE 0.2 E.U./dL (0.2-1.0)
[2019-08-03 04:00] VITALS: BP 127/76
[2019-08-03] MEDS: KETOROLAC 15MG/ML VIAL IV PRN ×2 (04:54→10:59)
[2019-08-03] MEDS: FUROSEMIDE 40MG TABLET PO SCH (06:19)
[2019-08-03] MEDS: CLONIDINE 0.3MG TABLET PO SCH ×3 (06:19→22:00)
[2019-08-03] MEDS: BLOOD SUGAR DIAGNOSTIC STRIP TEST SCH ×4 (06:29→21:17)
[2019-08-03] MEDS: GABAPENTIN 300MG CAPSULE PO SCH ×2 (06:45→17:54)
[2019-08-03 08:00] VITALS: BP 170/87
[2019-08-03] MEDS ORDERED: GABAPENTIN 300MG CAPSULE PO SCH (09:00)
[2019-08-03] MEDS: DULOXETINE HCL 30MG DR CAPSULE PO SCH (10:26)
[2019-08-03] MEDS: AMLODIPINE 5MG TABLET PO SCH ×3 (10:26→22:00)
[2019-08-03] MEDS: ASPIRIN 81MG TABLET PO SCH (10:27)
[2019-08-03] MEDS: INSULIN LISPRO 100 UNITS/ML SUBCUT SCH ×4 (10:29→22:38)
[2019-08-03] MEDS: ENOXAPARIN 40MG/0.4ML SYR SUBCUT SCH (10:30)
[2019-08-03] MEDS: LEVOFLOXACIN 500MG PREMIX 100 ML IV SCH (11:02)
[2019-08-03 12:00] VITALS: BP 172/85
[2019-08-03] MEDS: ACETAMINOPHEN 325MG TABLET PO PRN (12:55)
[2019-08-03 16:53] LABS: BASOPHILS % 0.6 % (0.0-2.0); EOSINOPHILS % 1.9 % (0.0-5.0); HEMATOCRIT. 25.1 % (36.0-48.0); HEMOGLOBIN. 8.5 g/dL (12.0-16.0); LYMPHOCYTES % 27.8 % (20.0-50.0); MEAN CORPUSCULAR HEMOGLOBIN 31.4 pg (28.0-32.0); MEAN PLATELET VOLUME 9.5 fl (7.4-10.4); MONOCYTES % 5.5 % (2.0-8.0); NEUTROPHILS % 64.2 % (40.0-76.0); PLATELET 147 x1000/uL (130-400); RED CELL DISTRIBUTION WIDTH 13.7 % (11.6-14.6)
[2019-08-03 17:06] LABS: CHLORIDE 106 mEq/L (98-107)
[2019-08-03 17:15] LABS: CREATINE KINASE 30 IU/L (26-192); CREATINE KINASE MB FRACTION < 1.0 ng/mL (0.5-3.6); HDL CHOLESTEROL 62 mg/dL (40-59); LDL CHOLESTEROL 62 mg/dL (5-100)
[2019-08-03 20:41] VITALS: BP 119/74
[2019-08-03] MEDS: ATORVASTATIN CALCIUM 20MG TABLET PO SCH (22:34)
[2019-08-03] MEDS ORDERED: INSULIN GLARGINE UD 100 UNITS/ML SYR SUBCUT NR (23:00)
[2019-08-04] VITALS: BP 170/89
[2019-08-04] MEDS: METOCLOPRAMIDE HCL 5MG TABLET PO SCH ×5 (00:40→23:21)
[2019-08-04] MEDS: CLONIDINE 0.1MG TABLET PO PRN (00:40)
[2019-08-04] MEDS: NITROGLYCERIN OINT 1GM/INCH UDPKT TD SCH ×5 (00:41→23:21)
[2019-08-04 02:58] VITALS: BP 148/79
[2019-08-04] MEDS: KETOROLAC 15MG/ML VIAL IV PRN ×3 (03:04→23:22)
[2019-08-04] MEDS: CLONIDINE 0.3MG TABLET PO SCH ×3 (05:46→23:21)
[2019-08-04] MEDS: AMLODIPINE 5MG TABLET PO SCH ×3 (05:47→23:21)
[2019-08-04] MEDS: GABAPENTIN 300MG CAPSULE PO SCH ×2 (05:47→17:48)
[2019-08-04] MEDS: BLOOD SUGAR DIAGNOSTIC STRIP TEST SCH ×4 (07:48→21:00)
[2019-08-04 08:19] VITALS: BP 153/76
[2019-08-04] MEDS: ASPIRIN 81MG TABLET PO SCH (08:24)
[2019-08-04] MEDS: FUROSEMIDE 40MG TABLET PO SCH (08:24)
[2019-08-04] MEDS: ENOXAPARIN 30MG/0.3ML SYR SUBCUT SCH ×2 (08:24→23:20)
[2019-08-04] MEDS: DULOXETINE HCL 30MG DR CAPSULE PO SCH (08:24)
[2019-08-04] MEDS: INSULIN LISPRO 100 UNITS/ML SUBCUT SCH ×4 (08:35→23:39)
[2019-08-04] MEDS: LEVOFLOXACIN 500MG PREMIX 100 ML IV SCH (11:04)
[2019-08-04 12:00] VITALS: BP 153/78
[2019-08-04] MEDS: ACETAMINOPHEN 325MG TABLET PO PRN (13:14)
[2019-08-04 14:32] LABS: BASOPHILS % 0.4 % (0.0-2.0); EOSINOPHILS % 1.8 % (0.0-5.0); HEMATOCRIT. 27.1 % (36.0-48.0); HEMOGLOBIN. 9.2 g/dL (12.0-16.0); LYMPHOCYTES % 26.7 % (20.0-50.0); MEAN CORPUSCULAR HEMOGLOBIN 31.6 pg (28.0-32.0); MEAN CORPUSCULAR VOLUME 92.8 fL (81.0-99.0); MEAN PLATELET VOLUME 9.6 fl (7.4-10.4); MONOCYTES % 5.7 % (2.0-8.0); NEUTROPHILS % 65.4 % (40.0-76.0); PLATELET 143 x1000/uL (130-400); RED BLOOD CELL COUNT 2.92 mill/uL (4.2-5.4); RED CELL DISTRIBUTION WIDTH 13.5 % (11.6-14.6)
[2019-08-04 16:00] VITALS: BP 127/62
[2019-08-04 20:35] VITALS: BP 153/85
[2019-08-04] MEDS: ATORVASTATIN CALCIUM 20MG TABLET PO SCH (23:21)
[2019-08-04] MEDS: INSULIN GLARGINE UD 100 UNITS/ML SYR SUBCUT SCH (23:40)
[2019-08-05 00:36] VITALS: BP 154/77
[2019-08-05 04:00] VITALS: BP 150/78
[2019-08-05] MEDS: GABAPENTIN 300MG CAPSULE PO SCH ×2 (05:57→20:16)
[2019-08-05] MEDS: AMLODIPINE 5MG TABLET PO SCH ×3 (05:57→21:30)
[2019-08-05] MEDS: KETOROLAC 15MG/ML VIAL IV PRN ×3 (05:57→20:42)
[2019-08-05] MEDS: CLONIDINE 0.3MG TABLET PO SCH ×3 (05:57→21:29)
[2019-08-05] MEDS: NITROGLYCERIN OINT 1GM/INCH UDPKT TD SCH ×3 (05:57→18:00)
[2019-08-05] MEDS: METOCLOPRAMIDE HCL 5MG TABLET PO SCH ×3 (05:58→20:16)
[2019-08-05 08:00] VITALS: BP 157/83
[2019-08-05] MEDS: BLOOD SUGAR DIAGNOSTIC STRIP TEST SCH ×4 (08:16→21:30)
[2019-08-05] MEDS: INSULIN LISPRO 100 UNITS/ML SUBCUT SCH ×4 (09:12→21:31)
[2019-08-05] MEDS: ASPIRIN 81MG TABLET PO SCH (09:14)
[2019-08-05] MEDS: FUROSEMIDE 40MG TABLET PO SCH (09:14)
[2019-08-05] MEDS: ACETAMINOPHEN 325MG TABLET PO PRN (09:14)
[2019-08-05] MEDS: ENOXAPARIN 30MG/0.3ML SYR SUBCUT SCH ×2 (09:14→21:29)
[2019-08-05] MEDS: DULOXETINE HCL 30MG DR CAPSULE PO SCH (09:14)
[2019-08-05] MEDS ORDERED: LEVOFLOXACIN 500MG TABLET PO SCH (11:00)
[2019-08-05 12:00] VITALS: BP 151/77
[2019-08-05] MEDS: LEVOFLOXACIN 250MG TABLET PO SCH (12:07)
[2019-08-05 16:00] VITALS: BP 109/60
[2019-08-05 20:00] VITALS: BP 141/74
[2019-08-05] MEDS: ATORVASTATIN CALCIUM 20MG TABLET PO SCH (21:30)
[2019-08-05] MEDS: INSULIN GLARGINE UD 100 UNITS/ML SYR SUBCUT SCH (21:31)
[2019-08-06] VITALS: BP 135/69
[2019-08-06] MEDS: NITROGLYCERIN OINT 1GM/INCH UDPKT TD SCH ×4 (01:32→18:31)
[2019-08-06] MEDS: METOCLOPRAMIDE HCL 5MG TABLET PO SCH ×4 (01:32→18:27)
[2019-08-06 04:00] VITALS: BP 123/72
[2019-08-06] MEDS: AMLODIPINE 5MG TABLET PO SCH ×4 (05:36→21:28)
[2019-08-06] MEDS: CLONIDINE 0.3MG TABLET PO SCH ×3 (06:05→21:27)
[2019-08-06] MEDS: GABAPENTIN 300MG CAPSULE PO SCH ×2 (06:05→18:27)
[2019-08-06] MEDS: BLOOD SUGAR DIAGNOSTIC STRIP TEST SCH ×4 (06:06→21:17)
[2019-08-06] MEDS: KETOROLAC 15MG/ML VIAL IV PRN ×3 (06:52→21:30)
[2019-08-06] MEDS: DULOXETINE HCL 30MG DR CAPSULE PO SCH (08:30)
[2019-08-06] MEDS: FUROSEMIDE 40MG TABLET PO SCH (08:30)
[2019-08-06] MEDS: ASPIRIN 81MG TABLET PO SCH (08:30)
[2019-08-06] MEDS: ENOXAPARIN 30MG/0.3ML SYR SUBCUT SCH ×2 (08:31→21:28)
[2019-08-06 08:32] VITALS: BP 169/77
[2019-08-06] MEDS: INSULIN LISPRO 100 UNITS/ML SUBCUT SCH ×4 (08:44→21:30)
[2019-08-06 12:00] VITALS: BP 143/72
[2019-08-06] MEDS: LEVOFLOXACIN 250MG TABLET PO SCH (12:01)
[2019-08-06 14:00] VITALS: BP 159/81
[2019-08-06 18:00] VITALS: BP 179/87
[2019-08-06] MEDS: ATORVASTATIN CALCIUM 20MG TABLET PO SCH (21:28)
[2019-08-06] MEDS: INSULIN GLARGINE UD 100 UNITS/ML SYR SUBCUT SCH (21:31)
[2019-08-07 00:14] VITALS: BP 165/81
[2019-08-07] MEDS: METOCLOPRAMIDE HCL 5MG TABLET PO SCH ×4 (00:34→17:27)
[2019-08-07] MEDS: NITROGLYCERIN OINT 1GM/INCH UDPKT TD SCH ×4 (00:34→17:28)
[2019-08-07 04:00] VITALS: BP 169/87
[2019-08-07] MEDS: GABAPENTIN 300MG CAPSULE PO SCH ×2 (05:02→17:27)
[2019-08-07] MEDS: AMLODIPINE 5MG TABLET PO SCH ×3 (05:02→21:21)
[2019-08-07] MEDS: CLONIDINE 0.3MG TABLET PO SCH ×3 (05:03→21:21)
[2019-08-07] MEDS: KETOROLAC 15MG/ML VIAL IV PRN (05:13)
[2019-08-07] MEDS: BLOOD SUGAR DIAGNOSTIC STRIP TEST SCH ×4 (06:57→20:29)
[2019-08-07] MEDS: ENOXAPARIN 30MG/0.3ML SYR SUBCUT SCH ×2 (08:19→21:22)
[2019-08-07] MEDS: DULOXETINE HCL 30MG DR CAPSULE PO SCH (08:19)
[2019-08-07] MEDS: ASPIRIN 81MG TABLET PO SCH (08:19)
[2019-08-07] MEDS: FUROSEMIDE 40MG TABLET PO SCH (08:19)
[2019-08-07] MEDS: INSULIN LISPRO 100 UNITS/ML SUBCUT SCH ×4 (08:23→21:22)
[2019-08-07 08:27] LABS: BASOPHILS % 0.7 % (0.0-2.0); EOSINOPHILS % 1.5 % (0.0-5.0); HEMATOCRIT. 27.8 % (36.0-48.0); HEMOGLOBIN. 9.7 g/dL (12.0-16.0); MEAN CORPUSCULAR HEMOGLOBIN 32.5 pg (28.0-32.0); MEAN CORPUSCULAR VOLUME 92.8 fL (81.0-99.0); MEAN PLATELET VOLUME 10.2 fl (7.4-10.4); MONOCYTES % 5.5 % (2.0-8.0); NEUTROPHILS % 63.3 % (40.0-76.0); PLATELET 149 x1000/uL (130-400); RED BLOOD CELL COUNT 2.99 mill/uL (4.2-5.4); RED CELL DISTRIBUTION WIDTH 13.6 % (11.6-14.6)
[2019-08-07 12:00] VITALS: BP 131/74
[2019-08-07] MEDS: LEVOFLOXACIN 250MG TABLET PO SCH (12:20)
[2019-08-07] MEDS: ACETAMINOPHEN 325MG TABLET PO PRN ×2 (13:24→21:36)
[2019-08-07 16:00] VITALS: BP 138/73
[2019-08-07 20:00] VITALS: BP 136/67
[2019-08-07] MEDS: ATORVASTATIN CALCIUM 20MG TABLET PO SCH (21:21)
[2019-08-07] MEDS: INSULIN GLARGINE UD 100 UNITS/ML SYR SUBCUT SCH (21:23)
[2019-08-08] VITALS: BP 143/74
[2019-08-08] MEDS: METOCLOPRAMIDE HCL 5MG TABLET PO SCH ×4 (01:04→18:05)
[2019-08-08] MEDS: NITROGLYCERIN OINT 1GM/INCH UDPKT TD SCH ×4 (01:05→18:04)
[2019-08-08 04:00] VITALS: BP 161/75
[2019-08-08] MEDS: ACETAMINOPHEN 325MG TABLET PO PRN ×3 (04:06→21:01)
[2019-08-08] MEDS: GABAPENTIN 300MG CAPSULE PO SCH ×2 (05:13→18:04)
[2019-08-08] MEDS: AMLODIPINE 5MG TABLET PO SCH ×3 (05:14→21:01)
[2019-08-08] MEDS: CLONIDINE 0.3MG TABLET PO SCH ×3 (05:15→21:01)
[2019-08-08] MEDS: BLOOD SUGAR DIAGNOSTIC STRIP TEST SCH ×4 (06:35→21:00)
[2019-08-08 06:49] LABS: BASOPHILS % 0.7 % (0.0-2.0); EOSINOPHILS % 1.7 % (0.0-5.0); HEMATOCRIT. 27.5 % (36.0-48.0); HEMOGLOBIN. 9.4 g/dL (12.0-16.0); LYMPHOCYTES % 31.1 % (20.0-50.0); MEAN CORPUSCULAR HEMOGLOBIN 31.7 pg (28.0-32.0); MEAN CORPUSCULAR VOLUME 92.7 fL (81.0-99.0); MEAN PLATELET VOLUME 9.9 fl (7.4-10.4); MONOCYTES % 4.8 % (2.0-8.0); NEUTROPHILS % 61.7 % (40.0-76.0); PLATELET 155 x1000/uL (130-400); RED BLOOD CELL COUNT 2.96 mill/uL (4.2-5.4); RED CELL DISTRIBUTION WIDTH 13.4 % (11.6-14.6)
[2019-08-08] MEDS: INSULIN LISPRO 100 UNITS/ML SUBCUT SCH ×4 (08:33→23:54)
[2019-08-08] MEDS: TRAMADOL 50MG TABLET PO PRN ×2 (08:56→18:05)
[2019-08-08] MEDS: ASPIRIN 81MG TABLET PO SCH (08:56)
[2019-08-08] MEDS: DULOXETINE HCL 30MG DR CAPSULE PO SCH (08:57)
[2019-08-08] MEDS: ENOXAPARIN 30MG/0.3ML SYR SUBCUT SCH ×2 (08:57→23:54)
[2019-08-08] MEDS: FUROSEMIDE 40MG TABLET PO SCH (08:57)
[2019-08-08 12:00] VITALS: BP 154/84
[2019-08-08] MEDS: LEVOFLOXACIN 250MG TABLET PO SCH (12:30)
[2019-08-08 16:00] VITALS: BP 157/80
[2019-08-08 18:32] VITALS: BP 155/80
[2019-08-08 20:00] VITALS: BP 173/77
[2019-08-08] MEDS: HYDRALAZINE HCL 25MG TABLET PO SCH (23:53)
[2019-08-08] MEDS: ATORVASTATIN CALCIUM 20MG TABLET PO SCH (23:54)
[2019-08-08] MEDS: INSULIN GLARGINE UD 100 UNITS/ML SYR SUBCUT SCH (23:55)
[2019-08-09] VITALS: BP 165/90
[2019-08-09] MEDS: NITROGLYCERIN OINT 1GM/INCH UDPKT TD SCH ×3 (00:32→11:53)
[2019-08-09] MEDS: METOCLOPRAMIDE HCL 5MG TABLET PO SCH ×3 (00:32→11:52)
[2019-08-09 04:00] VITALS: BP 150/75
[2019-08-09] MEDS: GABAPENTIN 300MG CAPSULE PO SCH (05:13)
[2019-08-09] MEDS: AMLODIPINE 5MG TABLET PO SCH ×2 (05:14→13:44)
[2019-08-09] MEDS: HYDRALAZINE HCL 25MG TABLET PO SCH (05:14)
[2019-08-09] MEDS: CLONIDINE 0.3MG TABLET PO SCH ×2 (05:14→13:45)
[2019-08-09 06:29] VITALS: BP 147/77
[2019-08-09] MEDS: BLOOD SUGAR DIAGNOSTIC STRIP TEST SCH ×2 (06:42→12:00)
[2019-08-09 08:00] VITALS: BP 156/76
[2019-08-09] MEDS: ASPIRIN 81MG TABLET PO SCH (08:24)
[2019-08-09] MEDS: FUROSEMIDE 40MG TABLET PO SCH (08:24)
[2019-08-09] MEDS: DULOXETINE HCL 30MG DR CAPSULE PO SCH (08:25)
[2019-08-09] MEDS: ENOXAPARIN 30MG/0.3ML SYR SUBCUT SCH (08:26)
[2019-08-09] MEDS: TRAMADOL 50MG TABLET PO PRN ×2 (08:31→13:43)
[2019-08-09] MEDS: INSULIN LISPRO 100 UNITS/ML SUBCUT SCH ×2 (08:32→11:54)
[2019-08-09] MEDS: CLONIDINE 0.1MG TABLET PO PRN (08:55)
[2019-08-09] MEDS: LEVOFLOXACIN 250MG TABLET PO SCH (11:53)
[2019-08-09 12:00] VITALS: BP 143/69
[2019-08-09] MEDS ORDERED: MINOXIDIL 2.5MG TABLET PO SCH (12:00)
[2019-08-09] MEDS ORDERED: HYDRALAZINE HCL 50MG TABLET PO SCH (14:00)
[2019-08-09 16:00] VITALS: BP 118/63
== END 2019-08-09 18:45 | DRG 445 ==
LOC: ER 09:55 → EDBEDREQTM 11:59 → ENRESERV 19:43 → 6WST 20:25 → 7WST 08-08 10:23
PROVIDERS: ADMIT Internal Medicine Nephrology; ATTEND Internal Medicine Nephrology
DX: K80.20 Calculus of gallbladder without cholecystitis without obstruction (principal); I13.0 Hypertensive heart and chronic kidney disease with heart failure and stage 1 through stage 4 chronic kidney disease, or unspecified chronic kidney disease; R07.89 Other chest pain; E11.22 Type 2 diabetes mellitus with diabetic chronic kidney disease; E11.40 Type 2 diabetes mellitus with diabetic neuropathy, unspecified; E11.65 Type 2 diabetes mellitus with hyperglycemia; E66.01 Morbid (severe) obesity due to excess calories; M47.812 Spondylosis without myelopathy or radiculopathy, cervical region; M48.02 Spinal stenosis, cervical region; K57.30 Diverticulosis of large intestine without perforation or abscess without bleeding; J44.9 Chronic obstructive pulmonary disease, unspecified; F32.9 Major depressive disorder, single episode, unspecified; E78.5 Hyperlipidemia, unspecified; N18.9 Chronic kidney disease, unspecified; E78.00 Pure hypercholesterolemia, unspecified; I50.9 Heart failure, unspecified; K44.9 Diaphragmatic hernia without obstruction or gangrene; Z79.82 Long term (current) use of aspirin; Z88.8 Allergy status to other drugs, medicaments and biological substances; Z86.73 Personal history of transient ischemic attack (TIA), and cerebral infarction without residual deficits; Z79.4 Long term (current) use of insulin; Z88.0 Allergy status to penicillin; Z68.39 Body mass index [BMI] 39.0-39.9, adult; Z79.899 Other long term (current) drug therapy
CPT/HCPCS: 36415; 71045; 74176; 80048; 80053; 80061; 81003; 82550; 82553; 82962; 83735; 83880; 84443; 84484; 85025; 85379; 93005; 93306; 93970; 96365; 96372; 97110; 97162; 97166; 97530; 97535; 99285; A6261; J0360; J1650; J1815; J1885; J1956; J8597

== ENCOUNTER 2021-01-27 12:48 | Inpatient (IN) | payer MEDICARE, MEDICAID ==
[~2021-01-27] VITALS: Ht 167.6 cm; Wt 103.0 kg
[~2021-01-27 12:48] MED LIST changes: +AMLO10TA80 PO; -ASPI-1158 PO; +ASPI-1406 PO; +BISA10SU62 RC; +CLON0.1T PO; +DOCU250C14 PO; +DOXA4TAB2 PO; +FOLI-43 PO; +GABA-532 PO; +HYDR100T26 PO; +INSU100C6 SQ; +IPRA3AMP31 IH; +LACT10SO7 MT; +LANTUSUD SUBCUT; +LOSA100T32 PO; +LOV40 SQ; +MULT-1223 PO; +SENN-178 PO; +TOPUD PO; +TRAM50TA94 PO
[2021-01-27] MEDS ORDERED: CEFTRIAXONE 1 G PREMIX 50 ML IV ONE (13:45)
[2021-01-27] MEDS ORDERED: ACETAMINOPHEN 325MG TABLET PO ONE (13:45)
[2021-01-27] MEDS ORDERED: SODIUM CHLORIDE 0.9% 1000ML BAG (SEPSIS BOLUS) IV ONE (13:45)
[2021-01-27 15:37] LABS: BASOPHILS % 0.6 % (0.0-2.0); EOSINOPHILS % 0.9 % (0.0-5.0); HEMATOCRIT. 31.8 % (36.0-48.0); HEMOGLOBIN. 10.9 g/dL (12.0-16.0); LYMPHOCYTES % 26.1 % (20.0-50.0); MEAN CORPUSCULAR HEMOGLOBIN 30.9 pg (28.0-32.0); MEAN CORPUSCULAR VOLUME 89.9 fL (81.0-99.0); MONOCYTES % 4.6 % (2.0-8.0); NEUTROPHILS % 67.8 % (40.0-76.0); PLATELET 214 x1000/uL (130-400); RED BLOOD CELL COUNT 3.54 mill/uL (4.2-5.4); RED CELL DISTRIBUTION WIDTH 13.9 % (11.6-14.6)
[2021-01-27 15:46] LABS: CHLORIDE 109 mEq/L (98-107)
[2021-01-27] MEDS ORDERED: KETOROLAC 15MG/ML VIAL IV ONE (16:30)
[2021-01-27] MEDS ORDERED: DIATR MEGLU/DIATRIZOATE SOLN 30ML ONE (16:59)
[2021-01-27] MEDS ORDERED: MAGNESIUM/ALUMINUM HYDROXIDE/SIMETHICONE 30ML UDC PO PRN (17:30)
[2021-01-27] MEDS ORDERED: ACETAMINOPHEN 325MG TABLET PO PRN (17:30)
[2021-01-27] MEDS ORDERED: ENOXAPARIN 40MG/0.4ML SYR SUBCUT SCH (17:30)
[2021-01-27] MEDS ORDERED: ONDANSETRON HCL 4MG/2ML INJ IV PRN (17:30)
[2021-01-27] MEDS ORDERED: KCL 20MEQ/100ML PREMIX 100 ML IV ONE (17:45)
[2021-01-27] MEDS ORDERED: LEVOFLOXACIN 500MG PREMIX 100 ML IV NR (18:00)
[2021-01-27] MEDS ORDERED: INSULIN GLARGINE UD 100 UNITS/ML SYR SUBCUT SCH (22:00)
[2021-01-27] MEDS: ENOXAPARIN 30MG/0.3ML SYR SUBCUT SCH (22:06)
[2021-01-27] MEDS ORDERED: IOHEXOL-300 100 ML BOTTLE ONE (23:34)
[2021-01-28 00:22] LABS: CLARITY URINE TURBID (CLEAR); COLOR URINE YELLOW (YELLOW); KETONES URINE NEGATIVE (NEGATIVE); LEUKOCYTE ESTERASE URINE 3+ (NEGATIVE); NITRITE URINE NEGATIVE (NEGATIVE); OCCULT BLOOD URINE 2+ (NEGATIVE); PH URINE 8.5 (4.5-8.0); PROTEIN URINE 2+ (NEGATIVE); UROBILINOGEN URINE 0.2 E.U./dL (0.2-1.0)
[2021-01-28 04:00] VITALS: BP 138/90
[2021-01-28 05:23] VITALS: BP 140/81
[2021-01-28] MEDS ORDERED: DEXTROSE 50% WATER 50ML SYRINGE IV PRN (06:15)
[2021-01-28] MEDS: ENOXAPARIN 30MG/0.3ML SYR SUBCUT SCH ×2 (06:25→17:59)
[2021-01-28] MEDS: BLOOD SUGAR DIAGNOSTIC STRIP TEST SCH ×4 (07:20→21:32)
[2021-01-28] MEDS: INSULIN LISPRO 100 UNITS/ML SUBCUT SCH ×4 (07:50→22:04)
[2021-01-28 08:00] VITALS: BP 114/64
[2021-01-28 10:24] LABS: BASOPHILS % 0.4 % (0.0-2.0); EOSINOPHILS % 0.9 % (0.0-5.0); HEMATOCRIT. 33.5 % (36.0-48.0); HEMOGLOBIN. 11.5 g/dL (12.0-16.0); MEAN CORPUSCULAR HEMOGLOBIN 30.9 pg (28.0-32.0); MEAN CORPUSCULAR VOLUME 90.2 fL (81.0-99.0); MEAN PLATELET VOLUME 9.9 fl (7.4-10.4); MONOCYTES % 5.6 % (2.0-8.0); NEUTROPHILS % 68.1 % (40.0-76.0); PLATELET 201 x1000/uL (130-400); RED BLOOD CELL COUNT 3.72 mill/uL (4.2-5.4); RED CELL DISTRIBUTION WIDTH 14.6 % (11.6-14.6)
[2021-01-28 11:54] LABS: CHLORIDE 113 mEq/L (98-107)
[2021-01-28 12:00] VITALS: BP 144/90
[2021-01-28] MEDS: CLONIDINE 0.3MG TABLET PO SCH ×2 (13:19→17:58)
[2021-01-28] MEDS: TRAMADOL 50MG TABLET PO PRN (13:20)
[2021-01-28] MEDS ORDERED: VANCOMYCIN 1,750 MG in DEXT 5% WATER 250 ML IV NR (15:00)
[2021-01-28] MEDS: HYDRALAZINE HCL 100MG TABLET PO SCH ×2 (15:02→22:00)
[2021-01-28 15:03] VITALS: BP 115/68
[2021-01-28 20:00] VITALS: BP 108/47
[2021-01-28] MEDS: LEVOFLOXACIN 250MG PREMIX 50 ML IV SCH (21:31)
[2021-01-28] MEDS: ATORVASTATIN CALCIUM 40MG TABLET PO SCH (21:32)
[2021-01-29] VITALS: BP 137/70
[2021-01-29] MEDS: INSULIN GLARGINE UD 100 UNITS/ML SYR SUBCUT SCH ×2 (00:01→21:07)
[2021-01-29 04:00] VITALS: BP 118/62
[2021-01-29] MEDS: ENOXAPARIN 30MG/0.3ML SYR SUBCUT SCH ×2 (05:25→17:36)
[2021-01-29] MEDS: TRAMADOL 50MG TABLET PO PRN (05:26)
[2021-01-29] MEDS: HYDRALAZINE HCL 100MG TABLET PO SCH ×3 (05:26→21:09)
[2021-01-29] MEDS: BLOOD SUGAR DIAGNOSTIC STRIP TEST SCH ×4 (07:40→21:05)
[2021-01-29] MEDS: INSULIN LISPRO 100 UNITS/ML SUBCUT SCH ×4 (07:50→21:08)
[2021-01-29 08:00] VITALS: BP 126/70
[2021-01-29] MEDS: ASPIRIN 81MG EC TABLET PO SCH (08:54)
[2021-01-29] MEDS: FOLIC ACID 1MG TABLET PO SCH (08:54)
[2021-01-29] MEDS: DULOXETINE HCL 60MG DR CAPSULE PO SCH (08:54)
[2021-01-29] MEDS: CLONIDINE 0.3MG TABLET PO SCH ×3 (08:55→16:57)
[2021-01-29] MEDS ORDERED: AMLODIPINE 10MG TABLET PO SCH (09:00)
[2021-01-29] MEDS ORDERED: BISACODYL 10MG SUPP RC SCH (09:00)
[2021-01-29] MEDS ORDERED: SODIUM CHLORIDE 0.9% 250 ML IV SCH (09:15)
[2021-01-29] MEDS ORDERED: SENNOSIDES 8.6MG TABLET PO PRN (10:15)
[2021-01-29] MEDS: SODIUM CHLORIDE 0.45% 1,000 ML IV SCH (11:25)
[2021-01-29] MEDS: MEGESTROL ACETATE 400 MG/10 ML UDC PO SCH (11:25)
[2021-01-29 11:56] LABS: BASOPHILS % 0.1 % (0.0-2.0); HEMATOCRIT. 28.8 % (36.0-48.0); HEMOGLOBIN. 9.8 g/dL (12.0-16.0); LYMPHOCYTES % 7.9 % (20.0-50.0); MEAN CORPUSCULAR HEMOGLOBIN 31.1 pg (28.0-32.0); MEAN CORPUSCULAR VOLUME 91.4 fL (81.0-99.0); MEAN PLATELET VOLUME 9.3 fl (7.4-10.4); MONOCYTES % 3.4 % (2.0-8.0); NEUTROPHILS % 88.6 % (40.0-76.0); PLATELET 175 x1000/uL (130-400); RED BLOOD CELL COUNT 3.15 mill/uL (4.2-5.4); RED CELL DISTRIBUTION WIDTH 14.6 % (11.6-14.6)
[2021-01-29] MEDS ORDERED: VANCOMYCIN 1 G PREMIX 200 ML IV SCH (14:00)
[2021-01-29 16:00] VITALS: BP 109/63
[2021-01-29 20:47] VITALS: BP 103/60
[2021-01-29] MEDS ORDERED: ATENOLOL 25MG TABLET PO SCH (21:00)
[2021-01-29] MEDS: ATORVASTATIN CALCIUM 40MG TABLET PO SCH (21:08)
[2021-01-29] MEDS: LEVOFLOXACIN 250MG PREMIX 50 ML IV SCH (21:09)
[2021-01-30] VITALS: BP 98/55
[2021-01-30 04:21] VITALS: BP 111/52
[2021-01-30] MEDS: HYDRALAZINE HCL 100MG TABLET PO SCH ×3 (06:17→21:12)
[2021-01-30] MEDS: ENOXAPARIN 30MG/0.3ML SYR SUBCUT SCH ×2 (06:18→17:40)
[2021-01-30] MEDS: SODIUM CHLORIDE 0.45% 1,000 ML IV SCH (06:18)
[2021-01-30] MEDS: BLOOD SUGAR DIAGNOSTIC STRIP TEST SCH ×4 (07:03→20:35)
[2021-01-30 08:00] VITALS: BP 119/68
[2021-01-30 08:06] LABS: BASOPHILS % 0.7 % (0.0-2.0); EOSINOPHILS % 0.6 % (0.0-5.0); HEMATOCRIT. 31.6 % (36.0-48.0); HEMOGLOBIN. 10.4 g/dL (12.0-16.0); LYMPHOCYTES % 20.2 % (20.0-50.0); MEAN CORPUSCULAR HEMOGLOBIN 30.1 pg (28.0-32.0); MEAN CORPUSCULAR VOLUME 91.2 fL (81.0-99.0); MEAN PLATELET VOLUME 10.1 fl (7.4-10.4); MONOCYTES % 4.2 % (2.0-8.0); NEUTROPHILS % 74.3 % (40.0-76.0); PLATELET 178 x1000/uL (130-400); RED BLOOD CELL COUNT 3.47 mill/uL (4.2-5.4); RED CELL DISTRIBUTION WIDTH 14.6 % (11.6-14.6)
[2021-01-30] MEDS: ASPIRIN 81MG EC TABLET PO SCH (08:40)
[2021-01-30] MEDS: MEGESTROL ACETATE 400 MG/10 ML UDC PO SCH (08:40)
[2021-01-30] MEDS: DULOXETINE HCL 60MG DR CAPSULE PO SCH (08:41)
[2021-01-30] MEDS: FOLIC ACID 1MG TABLET PO SCH (08:41)
[2021-01-30] MEDS: CLONIDINE 0.3MG TABLET PO SCH ×3 (08:41→17:39)
[2021-01-30] MEDS: INSULIN LISPRO 100 UNITS/ML SUBCUT SCH ×4 (08:42→21:13)
[2021-01-30 12:00] VITALS: BP 130/76
[2021-01-30 16:00] VITALS: BP 115/57
[2021-01-30] MEDS ORDERED: VANCOMYCIN 750 MG PREMIX 150 ML IV SCH (17:00)
[2021-01-30] MEDS: MEROPENEM 500 MG in SODIUM CHLORIDE 0.9% 50 ML IV SCH (17:40)
[2021-01-30 20:00] VITALS: BP 108/61
[2021-01-30] MEDS: ATORVASTATIN CALCIUM 40MG TABLET PO SCH (21:12)
[2021-01-30] MEDS: INSULIN GLARGINE UD 100 UNITS/ML SYR SUBCUT SCH (21:13)
[2021-01-31] VITALS: BP 101/52
[2021-01-31] MEDS: SODIUM CHLORIDE 0.45% 1,000 ML IV SCH ×2 (02:02→22:08)
[2021-01-31] MEDS: MEROPENEM 500 MG in SODIUM CHLORIDE 0.9% 50 ML IV SCH ×3 (02:02→18:05)
[2021-01-31 04:00] VITALS: BP 101/50
[2021-01-31] MEDS: HYDRALAZINE HCL 100MG TABLET PO SCH ×3 (05:40→21:12)
[2021-01-31] MEDS: ENOXAPARIN 30MG/0.3ML SYR SUBCUT SCH ×2 (05:41→18:05)
[2021-01-31] MEDS: INSULIN LISPRO 100 UNITS/ML SUBCUT SCH ×4 (07:29→21:29)
[2021-01-31] MEDS: BLOOD SUGAR DIAGNOSTIC STRIP TEST SCH ×4 (07:29→21:12)
[2021-01-31 08:00] VITALS: BP 115/65
[2021-01-31] MEDS ORDERED: POTASSIUM CHLORIDE 20MEQ/PACKET PO SCH (09:00)
[2021-01-31] MEDS: CITRIC ACID/SODIUM CITRATE SOLN 30ML UDC PO SCH ×3 (09:01→17:00)
[2021-01-31] MEDS: MEGESTROL ACETATE 400 MG/10 ML UDC PO SCH (09:01)
[2021-01-31] MEDS: CLONIDINE 0.3MG TABLET PO SCH ×3 (09:03→18:05)
[2021-01-31] MEDS: DULOXETINE HCL 60MG DR CAPSULE PO SCH (09:03)
[2021-01-31] MEDS: FOLIC ACID 1MG TABLET PO SCH (09:03)
[2021-01-31] MEDS: ASPIRIN 81MG EC TABLET PO SCH (09:03)
[2021-01-31 09:33] LABS: BG BASE EXCESS -4.1 mmol/L (-2.0-2.0); BG CARBOXYHEMOGLOBIN 0.3 % (0.5-1.5); BG DEOXYHEMOGLOBIN 1.2 % (0.0-5.0); BG FRACTION INSPIRED OXYGEN 21; BG HCO3 ACT 18.9 mmol/L (22.0-26.0); BG METHEMOGLOBIN 0.4 % (0.0-1.5); BG OXYGEN SATURATION 98.8 % (92.0-98.5); BG OXYHEMOGLOBIN 98.1 % (94.0-97.0); BG PCO2 27.8 mmHg (35.0-45.0); BG PH 7.451 (7.350-7.450); BG PO2 142.9 mmHg (75.0-100.0); BG SAMPLE SITE LEFT RADIAL; BG TOTAL HEMOGLOBIN 9.7 g/dL (12.0-18.0); BG VENT MODE ROOM AIR
[2021-01-31] MEDS ORDERED: LIDOCAINE HCL 1% 20ML VIAL (Pyxis) INJ ONE (11:14)
[2021-01-31 12:00] VITALS: BP 130/79
[2021-01-31 16:00] VITALS: BP 117/67
[2021-01-31 16:16] LABS: PARTIAL THROMBOPLASTIN TIME 31.8 sec (23.4-31.0); PROTHROMBIN TIME 10.3 sec (9.6-11.0)
[2021-01-31 20:00] VITALS: BP 109/58
[2021-01-31] MEDS: ATORVASTATIN CALCIUM 40MG TABLET PO SCH (21:28)
[2021-01-31] MEDS: INSULIN GLARGINE UD 100 UNITS/ML SYR SUBCUT SCH (21:29)
[2021-02-01] VITALS (7 sets, daily range): BP systolic 101–151; BP diastolic 63–92
[2021-02-01] MEDS: MEROPENEM 500 MG in SODIUM CHLORIDE 0.9% 50 ML IV SCH ×3 (01:31→17:57)
[2021-02-01] MEDS: ENOXAPARIN 30MG/0.3ML SYR SUBCUT SCH ×2 (05:24→18:03)
[2021-02-01] MEDS: HYDRALAZINE HCL 100MG TABLET PO SCH ×3 (05:24→13:23)
[2021-02-01] MEDS: BLOOD SUGAR DIAGNOSTIC STRIP TEST SCH ×3 (06:28→17:50)
[2021-02-01] MEDS: INSULIN LISPRO 100 UNITS/ML SUBCUT SCH ×3 (07:50→17:50)
[2021-02-01] MEDS: CITRIC ACID/SODIUM CITRATE SOLN 30ML UDC PO SCH ×3 (09:22→17:00)
[2021-02-01] MEDS: MEGESTROL ACETATE 400 MG/10 ML UDC PO SCH (09:22)
[2021-02-01] MEDS: ASPIRIN 81MG EC TABLET PO SCH (09:22)
[2021-02-01] MEDS: CLONIDINE 0.1MG TABLET PO PRN ×2 (09:23→09:25)
[2021-02-01] MEDS: FOLIC ACID 1MG TABLET PO SCH (09:23)
[2021-02-01] MEDS: DULOXETINE HCL 60MG DR CAPSULE PO SCH (09:23)
[2021-02-01] MEDS: TRAMADOL 50MG TABLET PO PRN (09:37)
[2021-02-01] MEDS: CLONIDINE 0.3MG TABLET PO SCH ×3 (09:38→17:57)
== END 2021-02-01 21:25 | disposition home health service (06) | DRG 690 ==
LOC: ER 12:48 → 6EST 17:03 → EDBEDREQ 17:19 → EDBEDREQSVC 17:19 → SUPCPDRO 17:19 → EDBEDREQTM 19:46 → EDBEDREQSVC 19:46 → ENRESERV 01-28 02:22 → 6WST 01-29 15:46
PROVIDERS: ADMIT Internal Medicine Nephrology; ATTEND Internal Medicine Nephrology
PROC: 02HV33Z Insertion of Infusion Device into Superior Vena Cava, Percutaneous Approach (ICD-10-PCS; principal; 2021-01-31)
PROC: B518ZZA Fluoroscopy of Superior Vena Cava, Guidance (ICD-10-PCS; 2021-01-31)
PROC: B548ZZA Ultrasonography of Superior Vena Cava, Guidance (ICD-10-PCS; 2021-01-31)
DX: N39.0 Urinary tract infection, site not specified (principal); E87.2 Acidosis; Z16.12 Extended spectrum beta lactamase (ESBL) resistance; I13.0 Hypertensive heart and chronic kidney disease with heart failure and stage 1 through stage 4 chronic kidney disease, or unspecified chronic kidney disease; E44.0 Moderate protein-calorie malnutrition; K42.9 Umbilical hernia without obstruction or gangrene; K44.9 Diaphragmatic hernia without obstruction or gangrene; K80.20 Calculus of gallbladder without cholecystitis without obstruction; K76.89 Other specified diseases of liver; K57.90 Diverticulosis of intestine, part unspecified, without perforation or abscess without bleeding; E11.22 Type 2 diabetes mellitus with diabetic chronic kidney disease; E11.42 Type 2 diabetes mellitus with diabetic polyneuropathy; E66.9 Obesity, unspecified; N18.9 Chronic kidney disease, unspecified; R31.9 Hematuria, unspecified; J44.9 Chronic obstructive pulmonary disease, unspecified; E78.5 Hyperlipidemia, unspecified; E04.2 Nontoxic multinodular goiter; Z20.822 Contact with and (suspected) exposure to COVID-19; R00.0 Tachycardia, unspecified; I50.9 Heart failure, unspecified; Z86.73 Personal history of transient ischemic attack (TIA), and cerebral infarction without residual deficits; Z88.5 Allergy status to narcotic agent; Z88.0 Allergy status to penicillin; Z79.1 Long term (current) use of non-steroidal anti-inflammatories (NSAID); Z79.899 Other long term (current) drug therapy; Z79.4 Long term (current) use of insulin; Z79.82 Long term (current) use of aspirin; Z86.16 Personal history of COVID-19; Z68.36 Body mass index [BMI] 36.0-36.9, adult; B96.20 Unspecified Escherichia coli [E. coli] as the cause of diseases classified elsewhere
CPT/HCPCS: 36415; 36573; 36600; 71045; 74176; 74177; 80048; 80053; 80061; 81003; 82375; 82805; 82962; 83036; 83605; 83735; 84145; 84484; 85025; 87077; 87186; 87426; 93005; 93306; 99291; A6261; C1725; J0696; J1650; J1815; J1885; J1956; J2185; J3370; J3480; J3490; J7030; J7040; J7060; Q9963; Q9967

== ENCOUNTER 2021-04-29 20:24 | Inpatient (IN) | payer MEDICARE, MEDICAID ==
[~2021-04-29] VITALS: Ht 170.2 cm; Wt 101.2 kg
[2021-04-29] MEDS ORDERED: SODIUM CHLORIDE 0.9% 1000ML BAG (SEPSIS BOLUS) IV ONE (20:45)
[2021-04-29] MEDS ORDERED: SODIUM CHLORIDE 0.9% 1,000 ML IV ONE (21:00)
[2021-04-29 23:22] LABS: HEMATOCRIT. 27.5 % (36.0-48.0); MEAN CORPUSCULAR HEMOGLOBIN 30.3 pg (28.0-32.0); MEAN CORPUSCULAR VOLUME 92.4 fL (81.0-99.0); MEAN PLATELET VOLUME 9.4 fl (7.4-10.4); RED BLOOD CELL COUNT 2.98 mill/uL (4.2-5.4); RED CELL DISTRIBUTION WIDTH 18.1 % (11.6-14.6)
[2021-04-29 23:27] LABS: CHLORIDE 108 mEq/L (98-107)
[2021-04-29 23:54] LABS: PLATELET 201 x1000/uL (130-400)
[2021-04-30] MEDS ORDERED: MEROPENEM 500 MG in SODIUM CHLORIDE 0.9% 50 ML IV STA (00:38)
[2021-04-30] MEDS ORDERED: TRAMADOL 50MG TABLET PO PRN (01:00)
[2021-04-30] MEDS ORDERED: CLONIDINE 0.1MG TABLET PO PRN (01:00)
[2021-04-30] MEDS ORDERED: ONDANSETRON HCL 4MG/2ML INJ IV PRN (01:00)
[2021-04-30] MEDS ORDERED: ACETAMINOPHEN 325MG TABLET PO PRN (01:00)
[2021-04-30 01:11] LABS: CLARITY URINE TURBID (CLEAR); COLOR URINE YELLOW (YELLOW); KETONES URINE NEGATIVE (NEGATIVE); LEUKOCYTE ESTERASE URINE 3+ (NEGATIVE); NITRITE URINE NEGATIVE (NEGATIVE); OCCULT BLOOD URINE NEGATIVE (NEGATIVE); PROTEIN URINE 1+ (NEGATIVE); SPECIFIC GRAVITY URINE 1.011 (1.005-1.030); UROBILINOGEN URINE 0.2 E.U./dL (0.2-1.0)
[2021-04-30] MEDS: DEXT 5%/0.45% NACL 1000ML 1,000 ML IV SCH ×2 (01:51→17:27)
[2021-04-30] MEDS ORDERED: FLUCONAZOLE 100MG TABLET PO ONE (02:45)
[2021-04-30 04:41] LABS: PLATELET ESTIMATE NORMAL
[2021-04-30 05:31] LABS: PROTHROMBIN TIME 10.3 sec (9.6-11.0)
[2021-04-30 11:26] VITALS: BP 152/100
[2021-04-30 12:00] VITALS: BP 160/98
[2021-04-30] MEDS: FOLIC ACID 1MG TABLET PO SCH (12:05)
[2021-04-30] MEDS: AMLODIPINE 10MG TABLET PO SCH (12:05)
[2021-04-30] MEDS: DOXAZOSIN MESYLATE 4MG TABLET PO SCH ×2 (12:05→17:27)
[2021-04-30] MEDS: FLUCONAZOLE 100MG TABLET PO SCH (12:27)
[2021-04-30] MEDS ORDERED: MEROPENEM 500 MG in SODIUM CHLORIDE 0.9% 50 ML IV SCH (13:00)
[2021-04-30] MEDS: MEROPENEM 500 MG in SODIUM CHLORIDE 0.9% 50 ML IV SCH ×2 (14:12→23:46)
[2021-04-30 16:00] VITALS: BP 123/69
[2021-04-30 20:00] VITALS: BP 117/66
[2021-04-30] MEDS ORDERED: DEXTROSE 50% WATER 50ML SYRINGE IV PRN (20:15)
[2021-04-30] MEDS: BLOOD SUGAR DIAGNOSTIC STRIP TEST SCH (21:00)
[2021-04-30] MEDS: INSULIN LISPRO 100 UNITS/ML SUBCUT SCH (23:45)
[2021-04-30] MEDS: ATORVASTATIN CALCIUM 40MG TABLET PO SCH (23:46)
[2021-05-01] VITALS (10 sets, daily range): BP systolic 103–129; BP diastolic 63–73
[2021-05-01 05:36] LABS: CHLORIDE 110 mEq/L (98-107)
[2021-05-01 05:40] LABS: BASOPHILS % 0.4 % (0.0-2.0); EOSINOPHILS % 0.6 % (0.0-5.0); HEMATOCRIT. 24.3 % (36.0-48.0); HEMOGLOBIN. 7.8 g/dL (12.0-16.0); LYMPHOCYTES % 31.9 % (20.0-50.0); MEAN CORPUSCULAR HEMOGLOBIN 29.6 pg (28.0-32.0); MEAN CORPUSCULAR VOLUME 91.8 fL (81.0-99.0); MEAN PLATELET VOLUME 8.5 fl (7.4-10.4); MONOCYTES % 5.7 % (2.0-8.0); NEUTROPHILS % 61.4 % (40.0-76.0); PLATELET 138 x1000/uL (130-400); RED BLOOD CELL COUNT 2.65 mill/uL (4.2-5.4); RED CELL DISTRIBUTION WIDTH 17.5 % (11.6-14.6)
[2021-05-01 05:53] LABS: LDL CHOLESTEROL 36 mg/dL (5-100)
[2021-05-01 05:55] LABS: HDL CHOLESTEROL 75 mg/dL (40-59)
[2021-05-01] MEDS: BLOOD SUGAR DIAGNOSTIC STRIP TEST SCH ×4 (06:18→21:37)
[2021-05-01] MEDS: INSULIN LISPRO 100 UNITS/ML SUBCUT SCH ×4 (06:22→21:00)
[2021-05-01] MEDS: MEROPENEM 500 MG in SODIUM CHLORIDE 0.9% 50 ML IV SCH ×2 (09:04→21:38)
[2021-05-01] MEDS: DEXT 5%/0.45% NACL 1000ML 1,000 ML IV SCH (09:04)
[2021-05-01] MEDS: FOLIC ACID 1MG TABLET PO SCH (09:05)
[2021-05-01] MEDS: DOXAZOSIN MESYLATE 4MG TABLET PO SCH ×2 (09:06→18:23)
[2021-05-01] MEDS: FLUCONAZOLE 100MG TABLET PO SCH (09:08)
[2021-05-01] MEDS: AMLODIPINE 10MG TABLET PO SCH (09:08)
[2021-05-01] MEDS: MEGESTROL ACETATE 400 MG/10 ML UDC PO SCH (11:47)
[2021-05-01] MEDS: FUROSEMIDE 40MG/4ML VIAL IVP SCH (11:48)
[2021-05-01] MEDS: CITRIC ACID/SODIUM CITRATE SOLN 30ML UDC PO SCH ×2 (12:36→18:24)
[2021-05-01 12:53] LABS: TOTAL IRON BINDING CAPACITY 116 ug/dL (250-450)
[2021-05-01 19:09] LABS: VITAMIN B12 SERUM > 2000.0 pg/mL (211-911)
[2021-05-01] MEDS: ATORVASTATIN CALCIUM 40MG TABLET PO SCH (21:37)
[2021-05-02 00:28] VITALS: BP 132/79
[2021-05-02 04:00] VITALS: BP 143/72
[2021-05-02] MEDS: BLOOD SUGAR DIAGNOSTIC STRIP TEST SCH ×4 (06:40→21:00)
[2021-05-02] MEDS: INSULIN LISPRO 100 UNITS/ML SUBCUT SCH ×4 (07:10→22:16)
[2021-05-02] MEDS: DEXT 5%/0.45% NACL 1000ML 1,000 ML IV SCH (07:57)
[2021-05-02 08:00] VITALS: BP 129/76
[2021-05-02 08:42] LABS: BASOPHILS % 0.7 % (0.0-2.0); EOSINOPHILS % 2.6 % (0.0-5.0); HEMATOCRIT. 27.7 % (36.0-48.0); HEMOGLOBIN. 9.3 g/dL (12.0-16.0); LYMPHOCYTES % 39.8 % (20.0-50.0); MEAN CORPUSCULAR HEMOGLOBIN 30.1 pg (28.0-32.0); MEAN PLATELET VOLUME 8.2 fl (7.4-10.4); MONOCYTES % 7.3 % (2.0-8.0); NEUTROPHILS % 49.6 % (40.0-76.0); PLATELET 116 x1000/uL (130-400); RED BLOOD CELL COUNT 3.08 mill/uL (4.2-5.4); RED CELL DISTRIBUTION WIDTH 16.8 % (11.6-14.6)
[2021-05-02] MEDS: CITRIC ACID/SODIUM CITRATE SOLN 30ML UDC PO SCH ×3 (09:00→17:00)
[2021-05-02] MEDS: MEGESTROL ACETATE 400 MG/10 ML UDC PO SCH (09:00)
[2021-05-02 09:04] LABS: PHOSPHORUS 3.4 mg/dL (2.5-4.9)
[2021-05-02] MEDS: FUROSEMIDE 40MG/4ML VIAL IVP SCH (09:15)
[2021-05-02] MEDS: MEROPENEM 500 MG in SODIUM CHLORIDE 0.9% 50 ML IV SCH (09:16)
[2021-05-02] MEDS: FOLIC ACID 1MG TABLET PO SCH (09:16)
[2021-05-02] MEDS: AMLODIPINE 10MG TABLET PO SCH (09:16)
[2021-05-02] MEDS: FLUCONAZOLE 100MG TABLET PO SCH (09:16)
[2021-05-02] MEDS: DOXAZOSIN MESYLATE 4MG TABLET PO SCH ×2 (09:16→17:00)
[2021-05-02 10:06] LABS: PROTHROMBIN TIME 10.3 sec (9.6-11.0)
[2021-05-02 12:00] VITALS: BP 113/63
[2021-05-02 16:00] VITALS: BP 132/63
[2021-05-02 20:00] VITALS: BP 127/75
[2021-05-02] MEDS: ATORVASTATIN CALCIUM 40MG TABLET PO SCH (22:15)
[2021-05-02] MEDS: MEROPENEM 1000MG in NORMAL SALINE 100ML IV SCH (22:15)
[2021-05-03] VITALS: BP 132/78
[2021-05-03 04:00] VITALS: BP 121/79
[2021-05-03] MEDS: BLOOD SUGAR DIAGNOSTIC STRIP TEST SCH ×4 (05:57→20:50)
[2021-05-03 08:00] VITALS: BP 114/60
[2021-05-03] MEDS: MEROPENEM 1000MG in NORMAL SALINE 100ML IV SCH (10:55)
[2021-05-03] MEDS: AMLODIPINE 10MG TABLET PO SCH (10:55)
[2021-05-03] MEDS: DOXAZOSIN MESYLATE 4MG TABLET PO SCH ×2 (10:55→17:42)
[2021-05-03] MEDS: MEGESTROL ACETATE 400 MG/10 ML UDC PO SCH (10:55)
[2021-05-03] MEDS: FOLIC ACID 1MG TABLET PO SCH (10:56)
[2021-05-03] MEDS: FLUCONAZOLE 100MG TABLET PO SCH (10:56)
[2021-05-03 12:00] VITALS: BP 122/79
[2021-05-03 12:18] LABS: HEMATOCRIT. 27.5 % (36.0-48.0); HEMOGLOBIN. 9.2 g/dL (12.0-16.0); MEAN CORPUSCULAR VOLUME 89.7 fL (81.0-99.0); MEAN PLATELET VOLUME 8.3 fl (7.4-10.4); PLATELET 114 x1000/uL (130-400); RED BLOOD CELL COUNT 3.06 mill/uL (4.2-5.4); RED CELL DISTRIBUTION WIDTH 16.7 % (11.6-14.6)
[2021-05-03 13:33] LABS: PLATELET ESTIMATE DECREASED
[2021-05-03 16:00] VITALS: BP 139/69
[2021-05-03] MEDS: INSULIN LISPRO 100 UNITS/ML SUBCUT SCH ×2 (16:40→20:50)
[2021-05-03 17:06] LABS: FOLATE RBC 881 ng/mL (>498)
[2021-05-03 20:00] VITALS: BP 138/84
[2021-05-03] MEDS: ATORVASTATIN CALCIUM 40MG TABLET PO SCH (20:51)
[2021-05-04] VITALS (7 sets, daily range): BP systolic 106–131; BP diastolic 66–78
[2021-05-04] MEDS: INSULIN LISPRO 100 UNITS/ML SUBCUT SCH ×4 (05:51→20:48)
[2021-05-04] MEDS: BLOOD SUGAR DIAGNOSTIC STRIP TEST SCH ×4 (05:51→20:48)
[2021-05-04 08:08] LABS: BASOPHILS % 0.8 % (0.0-2.0); EOSINOPHILS % 1.2 % (0.0-5.0); HEMATOCRIT. 28.6 % (36.0-48.0); HEMOGLOBIN. 9.5 g/dL (12.0-16.0); LYMPHOCYTES % 23.4 % (20.0-50.0); MEAN CORPUSCULAR HEMOGLOBIN 29.7 pg (28.0-32.0); MEAN CORPUSCULAR VOLUME 89.3 fL (81.0-99.0); MEAN PLATELET VOLUME 8.7 fl (7.4-10.4); MONOCYTES % 6.7 % (2.0-8.0); NEUTROPHILS % 67.9 % (40.0-76.0); PLATELET 104 x1000/uL (130-400); RED CELL DISTRIBUTION WIDTH 17.3 % (11.6-14.6)
[2021-05-04 09:10] LABS: IMMUNOGLOBULIN A 256 mg/dL (64-422); IMMUNOGLOBULIN G 801 mg/dL (586-1602); IMMUNOGLOBULIN M 81 mg/dL (26-217)
[2021-05-04] MEDS: AMLODIPINE 10MG TABLET PO SCH (09:25)
[2021-05-04] MEDS: MEGESTROL ACETATE 400 MG/10 ML UDC PO SCH (09:25)
[2021-05-04] MEDS: FLUCONAZOLE 100MG TABLET PO SCH (09:25)
[2021-05-04] MEDS: FOLIC ACID 1MG TABLET PO SCH (09:25)
[2021-05-04] MEDS: DOXAZOSIN MESYLATE 4MG TABLET PO SCH ×2 (09:26→17:14)
[2021-05-04] MEDS: NYSTATIN POWDER 15GM TOP SCH ×2 (09:26→20:48)
[2021-05-04] MEDS: ATORVASTATIN CALCIUM 40MG TABLET PO SCH (20:48)
[2021-05-05] VITALS: BP 132/72
[2021-05-05 04:00] VITALS: BP 121/69
[2021-05-05] MEDS: BLOOD SUGAR DIAGNOSTIC STRIP TEST SCH ×3 (06:40→16:23)
[2021-05-05] MEDS: INSULIN LISPRO 100 UNITS/ML SUBCUT SCH ×3 (07:10→16:23)
[2021-05-05 08:00] VITALS: BP 146/76
[2021-05-05] MEDS: FOLIC ACID 1MG TABLET PO SCH (08:53)
[2021-05-05] MEDS: FLUCONAZOLE 100MG TABLET PO SCH (08:53)
[2021-05-05] MEDS: MEGESTROL ACETATE 400 MG/10 ML UDC PO SCH (08:53)
[2021-05-05] MEDS: AMLODIPINE 10MG TABLET PO SCH (08:53)
[2021-05-05] MEDS: NYSTATIN POWDER 15GM TOP SCH (08:54)
[2021-05-05] MEDS: DOXAZOSIN MESYLATE 4MG TABLET PO SCH ×2 (08:54→16:59)
[2021-05-05 09:20] VITALS: BP 136/76
[2021-05-05 12:00] VITALS: BP 131/74
[2021-05-06] MEDS ORDERED: FLUCONAZOLE 100MG TABLET PO SCH (09:00)
== END 2021-05-05 18:15 | disposition home health service (06) | DRG 689 ==
LOC: ER 20:24 → 7EST 04-30 00:53 → EDBEDREQ 04-30 00:58 → EDBEDREQTM 04-30 00:58 → EDBEDREQDT 04-30 00:58 → ENRESERV 04-30 08:13 → CANBEDREQ 04-30 20:08
PROVIDERS: ADMIT Internal Medicine Nephrology; ATTEND Internal Medicine Nephrology
PROC: 02HV33Z Insertion of Infusion Device into Superior Vena Cava, Percutaneous Approach (ICD-10-PCS; 2021-04-30)
PROC: B548ZZA Ultrasonography of Superior Vena Cava, Guidance (ICD-10-PCS; 2021-04-30)
PROC: 30233N1 Transfusion of Nonautologous Red Blood Cells into Peripheral Vein, Percutaneous Approach (ICD-10-PCS; principal; 2021-05-01)
DX: N39.0 Urinary tract infection, site not specified (principal); G92.8 Other toxic encephalopathy; E46 Unspecified protein-calorie malnutrition; I13.0 Hypertensive heart and chronic kidney disease with heart failure and stage 1 through stage 4 chronic kidney disease, or unspecified chronic kidney disease; D61.818 Other pancytopenia; M87.9 Osteonecrosis, unspecified; D63.8 Anemia in other chronic diseases classified elsewhere; E11.22 Type 2 diabetes mellitus with diabetic chronic kidney disease; H54.8 Legal blindness, as defined in USA; J44.9 Chronic obstructive pulmonary disease, unspecified; K44.9 Diaphragmatic hernia without obstruction or gangrene; N18.9 Chronic kidney disease, unspecified; I87.2 Venous insufficiency (chronic) (peripheral); E66.9 Obesity, unspecified; I50.9 Heart failure, unspecified; E11.42 Type 2 diabetes mellitus with diabetic polyneuropathy; K57.90 Diverticulosis of intestine, part unspecified, without perforation or abscess without bleeding; F03.90 Unspecified dementia, unspecified severity, without behavioral disturbance, psychotic disturbance, mood disturbance, and anxiety; K42.9 Umbilical hernia without obstruction or gangrene; B96.89 Other specified bacterial agents as the cause of diseases classified elsewhere; I25.10 Atherosclerotic heart disease of native coronary artery without angina pectoris; R62.7 Adult failure to thrive; Z86.16 Personal history of COVID-19; Z86.73 Personal history of transient ischemic attack (TIA), and cerebral infarction without residual deficits; Z74.01 Bed confinement status; Z88.6 Allergy status to analgesic agent; Z88.0 Allergy status to penicillin; Z79.899 Other long term (current) drug therapy; Z79.4 Long term (current) use of insulin; Z79.82 Long term (current) use of aspirin; Z68.34 Body mass index [BMI] 34.0-34.9, adult; R91.8 Other nonspecific abnormal finding of lung field
CPT/HCPCS: 36415; 71045; 74176; 76937; 78278; 80048; 80053; 80061; 81003; 82140; 82607; 82747; 82784; 82962; 83036; 83540; 83550; 83605; 83735; 83880; 84100; 84145; 84443; 84484; 85014; 85025; 85044; 85384; 86038; 86334; 86850; 86900; 86920; 87106; 93005; 93306; 93970; 99285; A9560; C1725; J1815; J1940; J2185; J7030; P9016